=== PATIENT | female | born 1970 | race African-American/Black ===

== ENCOUNTER 2016-12-31 16:57 | Inpatient (IN) ==
[2016-12-31] MEDS ORDERED: HYDROmorphone 2 MG/1 ML VIAL IV STA (17:31)
[2016-12-31] MEDS ORDERED: SODIUM CHLORIDE 0.9% 500 ML IV STA (17:31)
[2016-12-31] MEDS ORDERED: ONDANSETRON 4 MG/2 ML VIAL IV STA (17:31)
[2016-12-31] MEDS ORDERED: PANTOPRAZOLE 40 MG VIAL IV STA (17:31)
[2016-12-31] MEDS ORDERED: hydrALAZINE 20 MG/1 ML VIAL IV STA ×2 (17:33→18:23)
[2016-12-31 17:50] LABS: Basophils % 0.2 % (0.0-0.8); Eosinophils # 0.1 10*3/uL (0.0-0.87); Eosinophils % 1.5 % (0.00-10.9); Hematocrit 34.2 VOL% (35.7-47.0); Hemoglobin 10.4 GM/DL (12.0-16.0); Immature Granulocytes % 0.2 %; Immature Granulocytes Absolute 0.02 #; Lymphocytes # 1.4 10*3/uL (1.4-4.0); Lymphocytes % 14.8 % (21.3-54.2); Mean Corpuscular HGB Conc 30.4 GM/DL (32-36); Mean Corpuscular Hemoglobin 20 PG (27-34); Mean Corpuscular Volume 66.9 FL (87-102); Mean Platelet Volume 9.7 FL (9.6-12.0); Monocytes # 0.7 10*3/uL (0.11-0.8); Monocytes % 7.7 % (1.7-12.7); Neutrophils % 75.6 % (38.7-73.9); Platelet Count 362 T/CUMM (130-400); Red Blood Count 5.11 MC/CUMM (3.8-5.5); White Blood Count 9.3 T/CUMM (4-12)
--- NOTE | 2016-12-31 17:50 | Emergency Department Note ---
Sravan Whitmore [place], am scribing for, and in the presence of, George Vallecillo MD 17:50. Avel Whitmore Charles R, MD, personally performed the services described in this documentation, ascribed by Janell Hinson in my presence, and it is both accurate and complete 750 . Arrival - Arrival Chief Complaint: Abdominal / Flank Pain Stated Complaint: abomindial pain ED Nursing Triage Note: c/o lower abd pain onset . denies uti or diarrhea. +n/v. last normal bm was Mode of Arrival: Ambulatory Limitations: No Limitations Source: Patient Time Seen by Provider: 12/31/16 17:25 - History of Present Illness HPI Narrative: This is a 46 y/o black female presenting to the ED with c/o lower abdominal pain that onset . She states she was at work when she ate a salad. She then had free gas in her abdomen. Pt states before she was able to leave [place] she began vomiting and has been vomiting since. Today was the first day that she was able to eat fruit cocktail and not vomit. Pt has a hernia to her lower abdomen that is erythematous, swollen, but nontender. She states the pain is under her umbilicus cord. She has a PMHx of HTN but is complaint with her medication. Consistency: constant Severity: moderate Date of Last Menstrual Period: now Home Medications: Home Medications Medication Instructions Recorded Confirmed Type Furosemide Tab [Lasix Tab] 20 mg PO BID 12/31/16 12/31/16 History Irbesartan 300 mg PO DAILY 12/31/16 12/31/16 History Metoprolol Succinate 50 mg PO DAILY 12/31/16 12/31/16 History amLODIPine [Norvasc] 10 mg PO DAILY 12/31/16 12/31/16 History Review of System - Review of System 12 point system: reviewed and no additional remarkable complaints except as stated - Review of System Constitutional: Absent: chills, fever, weakness Eyes: Absent: vision change Head/Ears/Nose/Throat: Absent: nasal drainage Respiratory: Absent: cough, wheezing Cardiovascular: Absent: chest pain, dyspnea on exertion Gastrointestinal: Present: abdominal pain (lower abdominal pain; hernia to lower abdomen ), nausea, vomiting. Absent: diarrhea Genitourinary female: Absent: dysuria Musculoskeletal: Absent: arm pain, back pain Skin: Absent: rash Neurological: Absent: headache, weakness, numbness, confusion, abnormal gait, vertigo Psychiatric: Absent: anxiety Endocrine: Absent: fatigue Allergic/Immunologic: Absent: facial swelling Medical,Surgical,& Family Hx - Medical History Cardio: History of: Hypertension Respiratory: History of: Obstructive Sleep Apnea - Social History Smoking Status: Never smoker Frequency of Alcohol Use: None Type of Drug Use: None Exam Vital Signs: Vital Signs Temperature 98.6 F 12/31/16 17:04 Pulse Rate 101 H 12/31/16 17:04 Respiratory Rate 18 12/31/16 17:04 Blood Pressure 208/131 12/31/16 17:04 O2 Sat by Pulse Oximetry 98 12/31/16 17:04 - General General appearance: alert, in no apparent distress - Head Head exam: Present: atraumatic, normocephalic, normal inspection - Eye Eye exam: Present: PERRL, EOMI. Absent: normal appearance (strabismus left eye ) - ENT ENT exam: Present: normal exam, normal oropharynx, mucous membranes moist, TM's normal bilaterally, normal external ear exam - Neck Neck exam: Present: normal inspection, full ROM, trachea midline. Absent: tenderness - Chest Chest inspection: Present: normal inspection, symmetric chest wall rise. Absent : tenderness - Respiratory Respiratory exam: Present: normal lung sounds bilaterally - Cardiovascular Cardiovascular exam: Present: normal rhythm, tachycardia, normal heart sounds. Absent: regular rate - Abdominal Exam Abdominal exam: Present: soft, tenderness, diminished bowel sounds, hernia ( large 10x12 cm hard; discolored; hernia ). Absent: distention, normal bowel sounds - Extremities Exam Extremities exam: Present: normal inspection, full ROM, normal capillary refill. Absent: tenderness, pedal edema, calf tenderness - Back Exam Back exam: Present: normal inspection, full ROM. Absent: tenderness - Neurological Exam Neurological exam: Present: alert, oriented X3, CN II-XII intact, normal gait, reflexes normal - Psychiatric Psychiatric exam: Present: normal affect, normal mood - Skin Skin exam: Present: warm, dry, intact, normal color. Absent: diaphoresis Course - Consultations Consultation #1: Dr. Galvez came and saw patient emergency room patient has incarcerated ventral hernia he can take her to surgery now Time: 17:50 Disposition Clinical Impression: Abdominal pain, Uncontrolled hypertension, Incarcerated ventral hernia Case discussed with: patient, patient's family Disposition: Still a Patient Condition: Guarded Time of Disposition: 17:51
--- NOTE | 2016-12-31 18:00 | General Surg History&Physical ---
Assessment and Plan (1) Incarcerated ventral hernia Status: Acute Assessment and plan: Impression: Incarcerated ventral hernia next Plan: Labs from outside facility reviewed. Abdominal x-ray and chest x-ray here were reviewed. She has dilated loops of small bowel in the upper abdomen and a paucity of gas centrally where the hernia is located. The skin changes over the abdominal bulge are very worrisome especially with how tense her abdomen is in this area. I don't detect peritoneal signs laterally. I discussed options with her and have recommended immediate laparotomy and repair of the hernia. I suspect this is an incarcerated hernia but a large abdominal mass could also be possible since I cannot feel the fascial edges. The risk of surgery including bleeding, infection, damage to surrounding structures, need for further surgery, possible bowel resection with leaking of the anastomosis, problems with anesthesia were all discussed in detail and she agrees to proceed. Alternatives of watchful waiting were also discussed but any further delay could resulted in deterioration of her clinical condition. Current Visit: Yes History of Present Illness Chief complaint: abdominal pain History of present illness: Ms. Lindsay is a 46 year old female with poorly controlled hypertension presents with abdominal pain since . She states she has had a known abdominal wall hernia for over a year. She began to have nausea vomiting and abdominal pain after she ate. The pain has been constant since then in the region of the hernia. Her pain has slowly worsened. She was transferred to our emergency room from an outside facility with a diagnosis of incarcerated hernia. She denies chest pain and shortness of breath and states she has no heart or lung problems. She states her only diagnoses are of hypertension and sleep apnea. She is no longer passing flatus and has not had a bowel movement in a couple of days. Home Medications Medication Instructions Recorded Confirmed Type Furosemide Tab [Lasix Tab] 20 mg PO BID 12/31/16 12/31/16 History Irbesartan 300 mg PO DAILY 12/31/16 12/31/16 History Metoprolol Succinate 50 mg PO DAILY 12/31/16 12/31/16 History amLODIPine [Norvasc] 10 mg PO DAILY 12/31/16 12/31/16 History Medical,Surgical,& Family Hx - Medical History Cardio: History of: Hypertension Respiratory: History of: Obstructive Sleep Apnea - Social History Smoking Status: Never smoker Frequency of Alcohol Use: None Type of Drug Use: None Exam - Constitutional Vitals: Period Temp Pulse Resp BP Sys/Au Pulse Ox Last 24 Hr 98.6 F 101 18 208/131 98 General appearance: no acute distress - Head Head exam: Present: normocephalic - ENT Mouth exam: Present: normal external inspection - Neck Neck exam: Present: normal inspection - Respiratory Respiratory exam: Present: clear to auscultation bilaterally - Cardiovascular Cardiovascular exam: Present: RRR - GI/Abdominal GI/Abdominal exam: Present: soft (very tender at the abdominal bulge. This is not reducible. The skin is very tense and has redness and skin changes already apparent. I'm unable to feel the edge of the fascia because of how tense this hernia is.) - Extremities Exam Extremities exam: Present: normal inspection - Back Exam Back exam: Present: normal inspection - Neurological Exam Neurological exam: Present: alert, oriented X3 Speech: Present: normal 12 point system: reviewed and no additional remarkable complaints except as stated Results - Labs CBC & BMP: 12/31/16 17:37 Lab Results: I have reviewed the past 24 hour labs
--- NOTE | 2016-12-31 18:02 | XRay Report ---
XR abdomen 2V Indication: Abdominal pain. Abdomen 3 views: Comparison 1450 hours shows no change in scattered air-fluid levels and gaseous prominence of left upper quadrant bowel. Absence of central small bowel markings again noted. Impression: No change. Gastroenteritis again shown. Cannot exclude central abdominal mass. PROCEDURE INTERPRETED AT [facility] DEPARTMENT OF RADIOLOGY Final Report Signed by: Omid Donaldson M.D.
--- NOTE | 2016-12-31 18:03 | XRay Report ---
XR chest 1V portable Indication: Abdominal pain. Chest one view: Heart size and mediastinal contour are normal. Lungs are hypoinflated but generally clear, except for minimal bibasilar atelectasis. Pleural spaces are clear. Bones are intact. Impression: Mild pulmonary hypoinflation with atelectasis. PROCEDURE INTERPRETED AT [facility] DEPARTMENT OF RADIOLOGY Final Report Signed by: Omid Donaldson M.D.
--- NOTE | 2016-12-31 18:06 | EKG Report ---
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
[2016-12-31] MEDS ORDERED: PANTOPRAZOLE 40 MG VIAL IV ONE (18:08)
[2016-12-31] MEDS ORDERED: ONDANSETRON 4 MG/2 ML VIAL ONE ×2 (18:08→18:55)
[2016-12-31] MEDS ORDERED: hydrALAZINE 20 MG/1 ML VIAL ONE (18:08)
[2016-12-31] MEDS ORDERED: HYDROmorphone 2 MG/1 ML VIAL ONE (18:09)
[2016-12-31 18:14] LABS: Albumin 3.4 G/DL (3.4-5.0); Calcium 9.4 MG/DL (8.5-10.1); Magnesium 2.6 MG/DL (1.8-2.4); Osmolality,Calculated 265.5 MOS/KG (273-304); Potassium 3.4 MMOL/L (3.5-5.1); Total Protein 8.9 G/DL (6.4-8.3)
[2016-12-31 18:21] LABS: Troponin I Only 0.086 NG/ML (0.00-0.045)
[2016-12-31] MEDS ORDERED: FUROSEMIDE 20 MG/2 ML VIAL IV STA (18:26)
[2016-12-31] MEDS ORDERED: FUROSEMIDE 20 MG/2 ML VIAL ONE (18:28)
[2016-12-31] MEDS ORDERED: PROPOFOL 200 MG/20 ML VIAL IV ONE (18:55)
[2016-12-31] MEDS ORDERED: PHENYLEPHRINE 1 MG/10 ML SYRINGE IV ONE (18:55)
[2016-12-31] MEDS ORDERED: SUCCINYLCHOLINE 200 MG/10 ML VIAL ONE (18:55)
[2016-12-31] MEDS ORDERED: LIDOCAINE 2% 5 ML VIAL ONE (18:55)
[2016-12-31] MEDS ORDERED: KETOROLAC 30 MG/1 ML VIAL ONE (18:55)
[2016-12-31] MEDS ORDERED: GLYCOPYRROLATE 0.4 MG/2 ML VIAL ONE (18:55)
[2016-12-31] MEDS ORDERED: PHENYLEPHRINE 50 MG/5 ML VIAL ONE (18:55)
[2016-12-31] MEDS ORDERED: NEOSTIGMINE 10 MG/10 ML VIAL ONE (18:55)
[2016-12-31] MEDS ORDERED: PHENYLEPHRINE 0.5% NASAL SPRAY 15 ML BOTTLE BOTH NARES ONE (18:55)
[2016-12-31] MEDS ORDERED: DEXAMETHASONE 10 MG/1 ML VIAL ONE (18:55)
[2016-12-31] MEDS ORDERED: LIDOCAINE 2% TOP JELLY 5 ML TUBE TOP ONE (18:55)
[2016-12-31] MEDS ORDERED: ROCURONIUM 100 MG/10 ML VIAL IV ONE (18:55)
[2016-12-31 19:03] LABS: Lactic Acid 1.3 MMOL/L (0.4-2.0)
[2016-12-31 19:07] LABS: Apearance,Urine CLEAR (Clear); Bacteria,Urine Occasional /HPF (Few); Bilirubin,Urine Small mg/dL (Negative); Blood, Urine Negative (Negative); Glucose,Urine (UA) Negative (Negative); Ketones,Urine Negative (Negative); Mucus,Urine Occasional /LPF (Occasional); Nitrite,Urine Negative (Negative); Protein,Urine 30 MG/DL; RBC,Urine 6 /HPF (0-4); Squamous Epithelial Cell,Urine Occasional /HPF (0-10); Urine Color Yellow (Yellow); Urine Specific Gravity 1.014 (1.001-1.035); WBC,Urine 5 /HPF (0-6)
[2016-12-31] MEDS ORDERED: PROPOFOL 1,000 MG/100 ML BOTTLE IV ONE (20:30)
[2016-12-31] MEDS ORDERED: MIDAZOLAM 2 MG/2 ML VIAL ONE (20:40)
[2016-12-31] MEDS ORDERED: fentaNYL 100 MCG/2 ML VIAL ONE (20:40)
[2016-12-31] MEDS ORDERED: SEVOFLURANE 1 UNIT/15 MINUTE INH ONE (20:40)
[2016-12-31] MEDS ORDERED: LACTATED RINGERS 2,000 ML IV ONE (20:40)
[2016-12-31] MEDS ORDERED: ACETAMINOPHEN 1,000 MG/100 ML VIAL IV ONE (20:40)
[2016-12-31] MEDS ORDERED: ONDANSETRON 4 MG/2 ML VIAL IV PRN ×2 (20:45)
[2016-12-31] MEDS ORDERED: HYDROmorphone 2 MG/1 ML VIAL IV PRN (20:45)
[2016-12-31] MEDS ORDERED: ACETAMINOPHEN 325 MG TABLET PO PRN (20:45)
[2016-12-31] MEDS ORDERED: MORPHINE 2 MG/1 ML SYRINGE IV PRN (20:45)
--- NOTE | 2016-12-31 20:52 | Operative Note ---
Date of procedure: 12/31/16 Pre-op diagnosis: incarcerated ventral hernia Post-op diagnosis: same (infarcted bowel and mesentery within the hernia. Multiple abdominal masses present) Procedure: Procedure performed: Exploratory laparotomy with omentectomy #2 small bowel resection #3 resection of hernia sac Procedure in detail: After informed consent was obtained, patient was taken operating suite and laid supine on the operating table. After general anesthesia was induced followed catheter placed and abdomen was prepped and draped in usual sterile fashion. After procedural pause incision was made over the large abdominal bulge and dissection carried down through skin and soft tissue. I dissected down to the fascia superior to the abdominal bulge where normal fascia was entered. Entrance into the abdominal cavity was obtained. I continued dissection down to the neck of the hernia which was much smaller than the actual sac. The neck was probably about 3 cm in diameter. Once the neck was opened and the sac opened there was return of dirty dishwater-colored fluid. Omentum was obviously infarcted in this area. As I further explored identified a cold small bowel coming up into the hernia sac that had not closed and was ischemic. Proximal to this area the small bowel was dilated and distal to it it was decompressed. Once the hernia sac was fully opened I resected it from the subcutaneous tissue and away from the skin as well as umbilicus and off of the fascia and removed. The necrotic omentum was transected using Bovie and ligated with 0 ties and passed off the field. Small bowel resection was performed using NADEGE stapling devices with blue loads removing approximately 10 cm or so of obviously nonviable small bowel. The remaining ends of the bowel appeared of questionable viability but not obviously necrotic. There was no other obvious ischemic bowel or any other ischemic organ present. 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 The largest was in the epigastric area and may be transverse colon but is difficult to tell. It was very large and boggy. At least the size of a small watermelon. There were multiple other smaller tumors in the pelvis. The patient's blood pressure was fairly labile during the procedure felt it best to terminate the procedure and get her to the ICU for resuscitation. An abdominal wound VAC was placed with a good seal. Patient was taken to the ICU in guarded condition. All lap and needle counts were correct at the end of the case. Plan will be for further evaluation with CT scan when the patient becomes more stable and a subsequent return to the operating room for second look laparotomy and re-anastomosis of the bowel. Further plans to address the tumors will be made after the CT scan. Anesthesia: JARREDA Surgeon / Physician: Jay Galvez Estimated blood loss: other (less than 25 mL) Specimens: other (#1 small bowel #2 infarcted omentum #3 hernia sac) Condition: stable Disposition: PACU Results - Labs CBC & BMP: 12/31/16 17:37 12/31/16 17:37 Discharge Plan - Discharge Medications No Action amLODIPine [Norvasc] 10 mg PO DAILY Furosemide Tab [Lasix Tab] 20 mg PO BID Metoprolol Succinate 50 mg PO DAILY Irbesartan 300 mg PO DAILY - Follow Up or Referral - Forms/Instructions
[2016-12-31] MEDS: LACTATED RINGERS 1,000 ML IV SCH (20:55)
[2016-12-31] MEDS: MORPHINE 2 MG/1 ML SYRINGE IV PRN (20:57)
[2016-12-31] MEDS: PROPOFOL 1,000 MG/100 ML BOTTLE IV SCH (21:00)
[2016-12-31] MEDS ORDERED: hydrALAZINE 20 MG/1 ML VIAL IV ONE (21:16)
--- NOTE | 2016-12-31 21:21 | XRay Report ---
XR chest 1V portable Indication: Intubated. Chest one view: Since 1747 hours, patient has been intubated, endotracheal tube 3 cm cephalad to silvina. NG tube extends into the upper stomach. Consider advancing slightly. Lung volumes are decreased with mild atelectasis. No infiltrates. Heart size is normal. Impression: Adequate intubation. Consider advancing NG tube slightly. Pulmonary hypoinflation. PROCEDURE INTERPRETED AT [facility] DEPARTMENT OF RADIOLOGY Final Report Signed by: Omid Donaldson M.D.
[2016-12-31 21:25] LABS: Allen Test Positive; Pt O2 Delivery Device Ventilator
[2016-12-31 21:26] LABS: ABG Base Excess 2.8 MMOL/L (-2.5-2.5); ABG HCO3 26.7 MMOL/L (20-26); ABG Oxygen Saturation 99.1 % (95-100); ABG PCO2 38.6 MM HG (35-48); ABG PH 7.458 (7.35-7.45); ABG PO2 220.1 MM HG (80-95); ABG TCO2 27.9 MMOL/L (23-27)
[2016-12-31] MEDS ORDERED: METOPROLOL TARTRATE 5 MG/5 ML VIAL IV ONE ×2 (21:30)
--- NOTE | 2016-12-31 22:28 | Hospitalist Consult Note ---
Assessment and Plan (1) Abdominal pain Status: Acute Current Visit: Yes (2) Uncontrolled hypertension Status: Acute Current Visit: Yes (3) Incarcerated ventral hernia Status: Acute Assessment and plan: Per my discussion with Dr. Ennis patient has a tumor in her abdomen. He was concerned that it was a neuroendocrine type tumor. He is ordered some plasma metanephrines. Recommend that she be put on a Cardene infusion for now. Should help stabilize her blood pressure as she is able to take p.o. again. She is supposed to have a CT scan of her abdomen tomorrow Current Visit: Yes History of Present Illness - Consult Narrative Reason for consult: Hypertension History of present illness: Ms. Lindsay is a 46 year old female with known past medical history of hypertension presented with abdominal pain for 5 days. Per review of the records she had a known abdominal wall hernia for over a year. She began to have nausea and vomiting and abdominal pain after she ate. The pain had been reported as constant in the region of the hernia. She was transferred to our emergency room from outside facility with a diagnosis of incarcerated hernia. She denied chest pain and states that she has not no heart or lung problems. She reported her only diagnosis was hypertension and sleep apnea. She reported not having a bowel movement a couple days. Patient was taken to surgery by Dr. Ennis. She has been kept n.p.o. And we were consulted for her malignant hypertension. CC: Jay Galvez MD - Home Medications and Allergies Home Medications: Home Medications Medication Instructions Recorded Confirmed Type Furosemide Tab [Lasix Tab] 20 mg PO BID 12/31/16 12/31/16 History Irbesartan 300 mg PO DAILY 12/31/16 12/31/16 History Metoprolol Succinate 50 mg PO DAILY 12/31/16 12/31/16 History amLODIPine [Norvasc] 10 mg PO DAILY 12/31/16 12/31/16 History Allergies/Adverse Reactions: Allergies Allergy/AdvReac Type Severity Reaction Status Date / Time No Known Allergies Allergy Unverified 12/31/16 18:22 Medical,Surgical,& Family Hx - Medical History Cardio: History of: Hypertension Respiratory: History of: Obstructive Sleep Apnea - Social History Smoking Status: Never smoker Frequency of Alcohol Use: None Type of Drug Use: None ROS unobtainable: due to endotracheal tube Exam - Constitutional Vitals: Period Temp Pulse Resp BP Sys/Au Pulse Ox Last 24 Hr 97.5 F-97.8 F 85-113 14-19 179-221/100-129 95-100 General appearance: normal weight - Head Head exam: Present: normal inspection - ENT ENT exam: Present: other (ET tube in place) - Neck Neck exam: Present: normal inspection - Respiratory Respiratory exam: Present: clear to auscultation bilaterally - Cardiovascular Cardiovascular exam: Present: regular rate and rhythm - GI/Abdominal GI/Abdominal exam: Present: distended, soft (Patient is abdominal wound is kept open) - Extremities Exam Extremities exam: Present: normal inspection - Back Exam Back exam: Present: normal inspection - Neurological Exam Neurological exam: Present: other (Sedated on the vent) - Psychiatric Psychiatric exam: Present: normal affect - Skin Skin exam: Present: normal color Results - Labs CBC & BMP: 12/31/16 17:37 12/31/16 17:37 Quality Measures - VTE Contraindication to Pharmacological VTE Prophylaxis: High Risk of Bleeding
[2016-12-31] MEDS: niCARdipine INJ 25 MG in SODIUM CHLORIDE 0.9% 240 ML IV SCH (22:35)
[2017-01-01] MEDS: PROPOFOL 1,000 MG/100 ML BOTTLE IV SCH ×4 (01:54→19:09)
[2017-01-01 02:13] LABS: ABG Base Excess 0.8 MMOL/L (-2.5-2.5); ABG HCO3 25.2 MMOL/L (20-26); ABG PCO2 41.7 MM HG (35-48); ABG PH 7.398 (7.35-7.45); ABG TCO2 23.5 MMOL/L (23-27)
[2017-01-01] MEDS: niCARdipine INJ 25 MG in SODIUM CHLORIDE 0.9% 240 ML IV SCH ×4 (04:04→21:19)
[2017-01-01 04:34] LABS: Basophils % 0.1 % (0.0-0.8); Hematocrit 31.8 VOL% (35.7-47.0); Hemoglobin 9.3 GM/DL (12.0-16.0); Immature Granulocytes % 0.3 %; Immature Granulocytes Absolute 0.03 #; Lymphocytes # 0.6 10*3/uL (1.4-4.0); Lymphocytes % 6.1 % (21.3-54.2); Mean Corpuscular HGB Conc 29.2 GM/DL (32-36); Mean Corpuscular Hemoglobin 20 PG (27-34); Mean Corpuscular Volume 67.2 FL (87-102); Mean Platelet Volume 9.9 FL (9.6-12.0); Monocytes # 0.5 10*3/uL (0.11-0.8); Monocytes % 5.7 % (1.7-12.7); Neutrophils # 8.3 10*3/uL (1.4-7.4); Neutrophils % 87.8 % (38.7-73.9); Platelet Count 382 T/CUMM (130-400); Red Blood Count 4.73 MC/CUMM (3.8-5.5); Red Cell Distribution Width 20.8 % (9.3-17.3); White Blood Count 9.5 T/CUMM (4-12)
[2017-01-01] MEDS: LACTATED RINGERS 1,000 ML IV SCH ×3 (04:49→20:16)
[2017-01-01 05:05] LABS: Calcium 8.8 MG/DL (8.5-10.1); Osmolality,Calculated 273.1 MOS/KG (273-304); Potassium 4.3 MMOL/L (3.5-5.1)
[2017-01-01 05:16] LABS: Albumin 2.9 G/DL (3.4-5.0); Bilirubin,Direct 2.4 MG/DL (0.0-0.20); Bilirubin,Indirect 0.7 MG/DL (0.0-1.0); Bilirubin,Total 3.1 MG/DL (0.2-1.0); Total Protein 7.6 G/DL (6.4-8.3)
--- NOTE | 2017-01-01 06:23 | XRay Report ---
Referring Physician: Kip Gill MD Exam: XR chest 1V portable Date: January 01, 2017 at 2:57 AM Reason: Ventilation management Comparison: Chest one view portable December 31, 2016 Findings: An endotracheal tube and feeding tube are again in place. The cardiac silhouette is normal in size. There are minimal perihilar and bibasilar opacities. This is most consistent with atelectasis. No pneumothorax or pleural effusion is identified. No acute osseous process is seen. Impression: There has been no significant change. PROCEDURE INTERPRETED AT [facility] DEPARTMENT OF RADIOLOGY Final Report Signed by: Dr. Aniceto Ferreira
--- NOTE | 2017-01-01 06:47 | Pulmonology Consult Note ---
Assessment and Plan (1) Abdominal mass Status: Acute Assessment and plan: This is going to require a CT scan and then most likely additional surgery. Concern over whether this may be a neuroendocrine tremor. Current Visit: Yes (2) Postoperative mechanical ventilation Status: Acute Assessment and plan: ABGs and chest x-ray look good. Should be able to wean her this morning. Current Visit: Yes (3) Uncontrolled hypertension Status: Acute Assessment and plan: Presently on Cardene infusion. Hospitalist following. Blood pressure looks good. Current Visit: Yes (4) Incarcerated ventral hernia Status: Acute Assessment and plan: She has had laparotomy for the hernia, but abdominal mass was encountered so she was not closed. Current Visit: Yes History of Present Illness Chief complaint: Postop laparotomy History of present illness: Ms. Lindsay is a 46 year old female who has had a ventral hernia for close to a year. Get where she was having pain nausea and vomiting not having any stools or flatus for the last for 5 days. She came in yesterday and went to surgery last night. She was found to have an abdominal mass and multiple other smaller masses. She is going to need additional surgery in time. At present she still on the ventilator after surgery. She is to have a CT scan of the abdomen today. Is not clear when she will be going back to surgery. There is no known history of any lung disease. She does have very difficult to control hypertension. Home Medications Medication Instructions Recorded Confirmed Type Furosemide Tab [Lasix Tab] 20 mg PO BID 12/31/16 12/31/16 History Irbesartan 300 mg PO DAILY 12/31/16 12/31/16 History Metoprolol Succinate 50 mg PO DAILY 12/31/16 12/31/16 History amLODIPine [Norvasc] 10 mg PO DAILY 12/31/16 12/31/16 History Allergies Allergy/AdvReac Type Severity Reaction Status Date / Time No Known Allergies Allergy Unverified 12/31/16 18:22 ROS unobtainable: due to endotracheal tube Exam (Pulmonay) H&P - Constitutional Vitals: Period Temp Pulse Resp BP Sys/Au Pulse Ox Last 24 Hr 97.0 F-97.8 F 85-113 14-21 129-240/67-146 95-100 Exam: Vital signs are normal. Pupils react to light. She has an exophoria. She does nod to questions and move all 4 extremities on command. Orotracheal tube is in place. Neck supple no bruits. Chest is clear equal breath sounds. Heart rate is around 105. Rhythm is normal. No murmur. Abdomen is bandaged with a large mass. Extremities no clubbing cyanosis or edema. Calves nontender. Medical,Surgical,& Family Hx - Medical History Cardio: History of: Hypertension Respiratory: History of: Obstructive Sleep Apnea - Family History Family History: Reports;: Family Hypertension, Family Stroke - Social History Smoking Status: Never smoker Frequency of Alcohol Use: None Type of Drug Use: None Results - Labs CBC & BMP: 01/01/17 04:11 01/01/17 04:11 Lab Results: I have reviewed the past 24 hour labs - Diagnostic Findings Procedure: Chest x-ray: image reviewed by me (Lungs are clear. ET tube good position.) Quality Measures - VTE Contraindication to Pharmacological VTE Prophylaxis: High Risk of Bleeding
--- NOTE | 2017-01-01 07:33 | Hospitalist Progress Note ---
Hospitalist: Subjective Interval history: No significant overnight events noted/ reported. Pt still intubated. No fever. No chest pain or SOB. C/O mild-moderate abd pain. Exam - Constitutional Vitals: Period Temp Pulse Resp BP Sys/Au Pulse Ox Last 24 Hr 97.0 F-97.8 F 85-113 14-21 129-240/67-146 95-100 Exam: GEN: Pt is awake, alert, comfortable, intubated on the vent, NAD HEENT: PERRL, EOMI, sclera clear, conjunctiva pink, nares patent, of what could be visualized O/P clear NECK: supple, No JVD, trachea midline CV: regular rate and rhythm. Normal S1/ S2 no M/R/G LUNGS: CTAB nonlabored ABD: soft, appropriately tender to palpation, positive bowel sounds EXT: Warm, well perfused. No C/C/E. NEURO: moves all extremities. Mild exotropia of the left eye. KING equally Results - Labs CBC & BMP: 01/01/17 04:11 01/01/17 04:11 - Impressions * Acute abdominal pain due to incarcerated hernia due to abdominal mass s/p exp lap and biopsy- mgt per primary service. IV pain control. NPO for now as surgery has plans to return to OR today for mass resection and plans for CT abd/pelvis with contrast. Cont PPI prophylaxis. Cont prophylactic Cefoxitin * Acute renal failure- possibly due to change in perfusion pressure with better BP control. Will hold Lasix and Avapro. She has orders for IVF and mucomyst. Recheck RFP in am * Essential hypertension- Blood pressure controlled on Cardene drip. Monitor vitals. Postoperatively will try to wean and start on home meds * Acute hypoxic respiratory failure- management of vent per pulmonology * JESSICA- mgt per pulm DVT prophylaxis- SCDS D/W nurse and pt and all questions answered. <30 minutes of time spent with this patient. Quality Measures - VTE Contraindication to Pharmacological VTE Prophylaxis: High Risk of Bleeding
[2017-01-01] MEDS ORDERED: FUROSEMIDE 20 MG TABLET PO SCH (08:00)
[2017-01-01] MEDS ORDERED: ACETYLCYSTEINE 20% 6,000 MG/30 ML VIAL PO ONE (08:00)
[2017-01-01] MEDS ORDERED: SODIUM CHLORIDE 0.9% 1,000 ML IV ONE (08:51)
[2017-01-01] MEDS: MORPHINE 2 MG/1 ML SYRINGE IV PRN ×5 (08:52→22:27)
[2017-01-01] MEDS ORDERED: PANTOPRAZOLE 40 MG TABLET PO SCH (09:00)
[2017-01-01] MEDS ORDERED: IRBESARTAN 150 MG TABLET PO SCH (09:00)
--- NOTE | 2017-01-01 09:28 | Anesthesia ---
Anesthesia Post OP - Post Ansesthetic Evaluation Patient seen in post op: Yes Resp: within normal limits (vent) CV: within normal limits Mental: within normal limits Temp: within normal limits [id number]: within normal limits Nausea and Vomiting: within normal limits Pain: within normal limits
[2017-01-01] MEDS ORDERED: ONDANSETRON 4 MG/2 ML VIAL ONE (11:05)
[2017-01-01] MEDS ORDERED: ROCURONIUM 100 MG/10 ML VIAL IV ONE (11:05)
[2017-01-01] MEDS ORDERED: VECURONIUM 10 MG VIAL IV ONE (11:05)
[2017-01-01] MEDS ORDERED: PHENYLEPHRINE 1 MG/10 ML SYRINGE IV ONE (11:05)
[2017-01-01] MEDS ORDERED: LIDOCAINE 2% 5 ML VIAL ONE (11:05)
--- NOTE | 2017-01-01 11:09 | Event Note ---
Stable BP better controlled [place] with good seal CT reviewed Metanephrine/5HIAA labs are 24 hour collection and then send outs Plan for reexploration and possible resection of abd tumors/closure of abdomen today. 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 Probably only able to debulk.
--- NOTE | 2017-01-01 11:36 | CT Report ---
Referring physician: Jay Galvez EXAM: CT abdomen and pelvis with and without contrast DATE: January 01, 2017 COMPARISON: None REASON: Abdominal mass TECHNIQUE: Axial images of the abdomen and pelvis were obtained with and without the use of 100 cc of Omnipaque 350 IV contrast. Oral contrast was also administered. Coronal and sagittal reformatted images were also provided. Total DLP was 2397.2 mGy*cm. FINDINGS: Lower thorax: There is mild atelectasis within both lower lobes, and the right hemidiaphragm is mildly elevated. Minimal ill-defined fluid/edema is seen adjacent to the lower esophagus. A feeding tube is in place with its distal tip within the gastric fundus. ABDOMEN: Liver: Unremarkable. Gallbladder and bile ducts: There is questionable mild diffuse prominence of the gallbladder wall, but this is nonspecific given the presence of minimal ascites. No biliary ductal dilatation is seen. Pancreas: Unremarkable. Spleen: Unremarkable. Adrenals: Unremarkable. Kidneys and ureters: No hydronephrosis is present, and no suspicious suspicious renal lesion is identified. There is questionable slight decreased excretion of contrast by the left kidney compared to the right. PELVIS: Bladder: The bladder is displaced anteriorly, and a Agarwal catheter is in place. The bladder wall is mildly prominent, but this could be related to poor distention. Reproductive: In the expected region of the uterus, there is a large lobulated mass. This is contiguous with an additional large well-circumscribed mass within the right/mid abdomen, which contains areas of probable necrosis and calcification. This may represent an enlarged uterus with multiple uterine fibroids, but other considerations include a neoplasm such as a sarcoma. This is difficult to accurately measure, but the mass within the right/mid upper abdomen measures 24 x 18 x 17 cm on image 70, series 2 and image 67, series 6. The lobulated mass within the pelvis in the expected region of the uterus measures 18 x 16 x 10 cm on image 109 series 3 and image 69, series 6. The ovaries are not identified. ABDOMEN AND PELVIS: Bowel: The colon is poorly distended and difficult to evaluate. There are distended loops of small bowel with air-fluid levels present. The small bowel is displaced by the large masses within the abdomen and pelvis, and there may be areas of bowel wall thickening. This could represent small bowel obstruction, ileus or postsurgical change. A transition point is difficult to identify but is likely located within the left abdomen near a suture line which is seen on image 96, series 3. Appendix: The appendix is not identified. Vasculature: The abdominal aorta is normal in size. Peritoneum: There is minimal scattered ascites and mesenteric edema. Mild free air is present, mainly anteriorly near a probable open wound at the abdominal wall. This air could be related to the wound or recent surgery. Lymph nodes: No suspicious retroperitoneal adenopathy is identified. Abdominal/pelvic wall: There is an open wound at the anterior abdominal wall at midline. There is a lobulated soft tissue density within the subcutaneous fat at the inferior aspect of the site of dehiscence. It measures 6.4 x 1.7 x 3.6 cm on image 108, series 3. This likely represents packing material or a wound VAC, but scarring, hematoma or inflammation could have a similar appearance. There is also some mild subcutaneous edema diffusely at the anterior abdominal wall and mild diffuse skin thickening. Surgical skin kimmy are noted in this region. Bones: There is mild to moderate degenerative change at the spine. No acute osseous process is seen. IMPRESSION: 1. There is a large lobulated mass within the pelvis in the expected region of the uterus. There is also a contiguous large well-circumscribed mass within the right/mid abdomen. This could represent an enlarged uterus with multiple uterine fibroids. However, a neoplastic process such as a sarcoma is also in the differential. 2. The colon is decompressed, and there are several distended loops of small bowel with air-fluid levels present. This could represent small bowel obstruction, ileus or postsurgical change. A transition point is difficult to identify but is likely located near a suture line within the left abdomen. 3. Open wound at the anterior abdominal wall near midline. Mild air is seen within the anterior abdomen and is likely related to recent surgery or the wound. 4. There is mesenteric edema and minimal scattered ascites. 5. There is questionable mild gallbladder wall thickening which is nonspecific in the setting of mesenteric edema and ascites. Further evaluation could be performed with a nuclear medicine biliary scan or ultrasound as clinically indicated. 6. There may be slight decreased excretion of contrast by the left kidney compared to the right. 7. Mild bibasilar atelectasis. The CT exam was performed using one or more of the following dose reduction techniques: Automated exposure control and adjustment of the mA and/or kV according to patient size. PROCEDURE INTERPRETED AT [facility] DEPARTMENT OF RADIOLOGY Final Report Signed by: Dr. Aniceto Ferreira
[2017-01-01] MEDS ORDERED: niCARdipine 25 MG/10 ML VIAL IV ONE (12:09)
[2017-01-01 12:22] LABS: Hematocrit 28.1 VOL% (35.7-47.0); Hemoglobin 8.4 GM/DL (12.0-16.0)
--- NOTE | 2017-01-01 12:56 | Operative Note ---
Date of procedure: 01/01/17 Pre-op diagnosis: Intraoperative consult large uterine leiomyomata Post-op diagnosis: other (Uterine megaly with large uterine leiomyomata) Procedure: PROCEDURE: 1. Total abdominal hysterectomy. 2 left salpingo-oophorectomy SURGEON: Alex Madison MD. COMPUTER PROGRAMMER CHIEF: Drs. Ennis and Dr. Sun FINDINGS: 1. Uterus greater than 22 weeks' size. 2. Large uterine leiomyomata 3. Left ovary completely adherent to the fundus of the uterus 4. Right ovary appeared normal COMPLICATIONS: None. ESTIMATED BLOOD LOSS: 200 cc. DRAINS: Agarwal to gravity. DISPOSITION: Patient to be closed by Dr. Ennis and Dr. Sun OPERATIVE DESCRIPTION: Was consulted intraoperatively by Drs. Ennis and sandeep. And the abdomen open and they had completed their portion procedure and had removed a large smooth muscle tumor. She is also noted to have large uterine leiomyomata of the uterus which were intramural and also multiple pedunculated ones. The decision was made to proceed as was in the patient's best interest to remove the uterus as this appeared to be a potential problem again in the near future. The utero-ovarian ligaments were identified bilaterally and back clamped. The right tube and ovary was completely adherent to the fundus of the uterus on the left. The IP ligament was identified above the level ureter on the left was crossclamped using a slightly curved Z-Clamp transected using curved Gaines scissors and transfixed using Monocryl sutures. The utero-ovarian ligament was identified on the right taken down in similar fashion leaving the ovaries patient's 46 years old and her right ovary appeared normal. This dissection technique was carried out through the round ligaments bilaterally. A bladder flap was created off the anterior lower uterine segment using the Bovie electrocautery and blunt and sharp dissection. The uterine vessels were skeletonized bilaterally taken down using a right angle Z clamps transected using curved Gaines scissors and transfixed using Monocryl sutures. Using a large malleable retractor as a back stop the fundus the uterus was amputated using a #10 knife in the lower uterine stump grasped with Jef tenaculum. Specimen was or was removed from the field. The rest the cardinal complex down the uterosacral ligament complex was taken down in succession and treatment clock crossclamped with straight Z clamps transected using a #10 non- transfixes normal Monocryl sutures. The bladder was continually dissected away caudad and urine was noted to be clear but concentrated. The terminal portion uterosacral ligament complex was taken down using right angle Z clamps transected using Helen scissors and transfixed using #1 Vicryl suture. Central portion of vaginal cuff was reinforced using 0 Monocryl suture in a [id number] fashion. The angles were noted to be hemostatic. All pedicles were then cut the abdomen copiously irrigated again all areas noted to be hemostatic this portion procedure Dr. Lenny johnson completed their portion procedure by closing the abdomen which is dictated in a separate operative note Anesthesia: JARREDA Surgeon / Physician: Alex Madison Estimated blood loss: other (200) Specimens: other (Uterus cervix left tube and ovary to pathology) Condition: stable Disposition: other (Case turned over Dr. Ennis and Dr. Sun for closure of the abdomen) Results - Labs CBC & BMP: 01/01/17 12:17 01/01/17 04:11 Discharge Plan - Discharge Medications No Action amLODIPine [Norvasc] 10 mg PO DAILY Furosemide Tab [Lasix Tab] 20 mg PO BID Metoprolol Succinate 50 mg PO DAILY Irbesartan 300 mg PO DAILY - Follow Up or Referral - Forms/Instructions
--- NOTE | 2017-01-01 13:03 | Operative Note ---
Date of procedure: 01/01/17 Procedure: Dr. Sun librarian assistant operative note Brenna MCKEON. Surgeon; Loli Sun. Procedure patient underwent laparotomy with partial small bowel resection the previous night for an incarcerated umbilical hernia with findings of large tumor masses she was unstable has been now resuscitated and stabilized as returned to the operating room for completion of the laparotomy and any necessary procedures. Description of the procedure: Dr. Galvez performed exploratory laparotomy with removal of omentum and a large upper body solid tumor mass resection of the small portion of the small bowel and re-anastomosis. This at this point is found that the large tumor mass that involves the uterus with multiple fibroid appearing tumors. Dr. Madison is consulted joints the procedure and complete saline abdominal hysterectomy total abdominal hysterectomy with a left salpingo- oophorectomy. His portion of the procedure separately dictated I assisted Dr. Galvez and Dr. Madison throughout this procedure. Surgeon / Physician: Thad Sun Results - Labs CBC & BMP: 01/01/17 12:17 01/01/17 04:11 Discharge Plan - Discharge Medications No Action amLODIPine [Norvasc] 10 mg PO DAILY Furosemide Tab [Lasix Tab] 20 mg PO BID Metoprolol Succinate 50 mg PO DAILY Irbesartan 300 mg PO DAILY - Follow Up or Referral - Forms/Instructions
[2017-01-01] MEDS ORDERED: MIDAZOLAM 2 MG/2 ML VIAL ONE (13:29)
[2017-01-01] MEDS ORDERED: SEVOFLURANE 1 UNIT/15 MINUTE INH ONE (13:29)
[2017-01-01] MEDS ORDERED: LACTATED RINGERS 3,000 ML IV ONE (13:29)
[2017-01-01] MEDS ORDERED: fentaNYL 100 MCG/2 ML VIAL ONE (13:29)
--- NOTE | 2017-01-01 13:36 | Anesthesia ---
Anesthesia Post OP - Post Ansesthetic Evaluation Patient seen in post op: Yes Resp: within normal limits CV: within normal limits Mental: within normal limits Temp: within normal limits [id number]: within normal limits Nausea and Vomiting: within normal limits Pain: within normal limits
[2017-01-01] MEDS: amLODIPine 10 MG TABLET PO SCH (13:54)
[2017-01-01] MEDS: METOPROLOL SUCCINATE XL 50 MG TABLET PO SCH (14:15)
[2017-01-01] MEDS: PANTOPRAZOLE 40 MG TABLET PO SCH (14:15)
[2017-01-01 15:06] LABS: Hematocrit 32.7 VOL% (35.7-47.0); Hemoglobin 9.9 GM/DL (12.0-16.0)
[2017-01-01] MEDS: ACETYLCYSTEINE 20% 6,000 MG/30 ML VIAL PO SCH ×2 (16:05→23:59)
--- NOTE | 2017-01-01 16:12 | Operative Note ---
Date of procedure: 01/01/17 Pre-op diagnosis: open abdomen, intra-abdominal tumors Post-op diagnosis: same Procedure: Procedure performed: #1 reexploration of recent laparotomy #2 small bowel resection with reanastomosis #3 resection of large intra-abdominal tumor number for repair of incarcerated ventral hernia Procedure in detail: After informed consent was obtained, the patient was taken operating suite and laid supine on the operating table. After general anesthesia induced the abdominal wound VAC removed and the abdomen was prepped and draped in usual sterile fashion. After procedural pause the kimmy removed as well as the from and intra-abdominal draped. The midline incision was extended superiorly and inferiorly. The abdomen was entered and there was no significant blood or clot present. Large tumor in the upper abdomen appeared to be tethered by omentum and the omentum was divided between the tumor and the transverse colon. I was then able to deliver the large intra- abdominal mass outside of the abdomen and found that it coursed along the pedicle down to the uterus. There were other multiple tumors on the uterus and these all had the appearance of fibroids. A TA stapling device was used to divide the pedicle to the large tumor with a green staple load. This mass was approximately 30 cm or more in diameter. It was passed off the field. Next the small bowel was run from the ligament of Treitz to the ileocecal valve. Proximal portion dilated down to the staple line in the distal portion appeared decompressed. The bowel appeared healthy and viable and mildly edematous. A side to side functional end and anastomosis was created using a NADEGE stapling device with a green load. The resultant enterotomies were transected off using a NADEGE stapling device with a green load. The anastomosis appeared patent with no leakage. There was excellent hemostasis. The mesenteric defect was closed with 3-0 Vicryl suture. Next the abdomen was irrigated and suction was good hemostasis. NG tube was in good position. Gallbladder did not appear to be inflamed. Liver appeared normal as did the spleen. Next Dr. Huerta was consult it came in and felt that most appropriate thing was a hysterectomy given these large tumors. Please see his operative report for details regarding that portion of the operation. After he was done the abdomen was again irrigated and suction there was excellent hemostasis and I closed the midline fascia using #1 running looped PDS sutures thereby repairing the previously incarcerated ventral hernia. The wound was irrigated and suction. Skin closed with kimmy after the umbilicus was tacked back down to the fascia. Sterile dressings applied. The patient was left intubated and taken to the ICU in stable condition. All lap and needle counts were correct at the end of the case. Anesthesia: JANICE Surgeon / Physician: Jay Galvez Elementary Education Tutor: Thad Sun Estimated blood loss: other (less than 20 mL) Specimens: other (large intra-abdominal tumor) Condition: stable Disposition: PACU Results - Labs CBC & BMP: 01/01/17 14:59 01/01/17 04:11 Discharge Plan - Discharge Medications No Action amLODIPine [Norvasc] 10 mg PO DAILY Furosemide Tab [Lasix Tab] 20 mg PO BID Metoprolol Succinate 50 mg PO DAILY Irbesartan 300 mg PO DAILY - Follow Up or Referral - Forms/Instructions
[2017-01-01] MEDS ORDERED: ALBUMIN 25% 25 GM in PREMIX 1 EACH IV ONE (20:00)
[2017-01-02] MEDS: MORPHINE 2 MG/1 ML SYRINGE IV PRN ×9 (00:04→22:26)
[2017-01-02] MEDS: niCARdipine INJ 25 MG in SODIUM CHLORIDE 0.9% 240 ML IV SCH ×4 (01:45→22:33)
[2017-01-02] MEDS: PROPOFOL 1,000 MG/100 ML BOTTLE IV SCH ×2 (03:03→10:03)
[2017-01-02 03:35] LABS: Allen Test Positive; Pt O2 Delivery Device Ventilator
[2017-01-02 03:36] LABS: ABG Base Excess -1.3 MMOL/L (-2.5-2.5); ABG HCO3 23.1 MMOL/L (20-26); ABG Oxygen Saturation 98.1 % (95-100); ABG PH 7.413 (7.35-7.45); ABG PO2 127.9 MM HG (80-95); ABG TCO2 24.2 MMOL/L (23-27)
[2017-01-02] MEDS: LACTATED RINGERS 1,000 ML IV SCH ×3 (05:16→21:30)
[2017-01-02 05:37] LABS: Basophils % 0.2 % (0.0-0.8); Eosinophils % 0.3 % (0.00-10.9); Hematocrit 26.3 VOL% (35.7-47.0); Immature Granulocytes % 0.2 %; Immature Granulocytes Absolute 0.02 #; Lymphocytes % 9.9 % (21.3-54.2); Mean Corpuscular HGB Conc 30.4 GM/DL (32-36); Mean Corpuscular Hemoglobin 20 PG (27-34); Mean Corpuscular Volume 67.1 FL (87-102); Mean Platelet Volume 10.4 FL (9.6-12.0); Monocytes # 0.9 10*3/uL (0.11-0.8); Monocytes % 8.9 % (1.7-12.7); Neutrophils # 7.8 10*3/uL (1.4-7.4); Neutrophils % 80.5 % (38.7-73.9); Platelet Count 301 T/CUMM (130-400); Red Blood Count 3.92 MC/CUMM (3.8-5.5); Red Cell Distribution Width 20.7 % (9.3-17.3); White Blood Count 9.7 T/CUMM (4-12)
[2017-01-02 05:58] LABS: Hypochromasia 1+; Platelet Estimate Adequate
[2017-01-02 06:07] LABS: Calcium 7.2 MG/DL (8.5-10.1); Osmolality,Calculated 281.4 MOS/KG (273-304); Phosphorous 4.7 MG/DL (2.5-4.9); Potassium 4.1 MMOL/L (3.5-5.1)
[2017-01-02 06:11] LABS: Albumin 2.1 G/DL (3.4-5.0); Bilirubin,Total 1.6 MG/DL (0.2-1.0); Calcium 7.2 MG/DL (8.5-10.1); Osmolality,Calculated 282.4 MOS/KG (273-304); Potassium 4.1 MMOL/L (3.5-5.1); Total Protein 5.1 G/DL (6.4-8.3)
[2017-01-02] MEDS ORDERED: METOPROLOL TARTRATE 5 MG/5 ML VIAL IV ONE (06:24)
--- NOTE | 2017-01-02 06:36 | Pulmonology Progress Note ---
Pulmonary - PN: Subj Interval history: This 46-year-old white female went back to surgery yesterday. 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 She had a hysterectomy. Her abdomen has been closed. She is alert and calm. She is still tachycardic with a rate of around 120. We will give her some IV metoprolol. Should be able to extubate this morning. Exam (Progress Note) - Constitutional Vitals: Period Temp Pulse Resp BP Sys/Au Pulse Ox Last 24 Hr 97.1 F-99.6 F 99-132 14-23 111-196/72-114 97-100 Exam: Patient is alert nods to questions. Pupils react to light. She has exophoria. Orotracheal tube in place. Neck supple. Chest sounds clear. Heart rate around 120 with no murmurs. Abdomen is now closed bandage mildly tender. Decreased bowel sounds. Extremities no clubbing cyanosis edema. Calves nontender. Results - Labs CBC & BMP: 01/02/17 04:45 01/02/17 04:45 Assessment and Plan (1) Abdominal mass Status: Acute Assessment and plan: This is going to require a CT scan and then most likely additional surgery. Concern over whether this may be a neuroendocrine tremor. 01/02/2017 she was taken back to surgery yesterday with multiple smooth muscle tumors removed. Also had hysterectomy and left oophorectomy. Had wound closed. Await final pathology reports. Current Visit: Yes (2) Postoperative mechanical ventilation Status: Acute Assessment and plan: ABGs and chest x-ray look good. Should be able to wean her this morning. 01/02/2017 ABGs look good. Other than her tachycardia she should be ready for extubation. We will give her some IV metoprolol. She normally takes metoprolol by mouth. Need to get her heart rate down for weaning. Current Visit: Yes (3) Uncontrolled hypertension Status: Acute Assessment and plan: Presently on Cardene infusion. Hospitalist following. Blood pressure looks good. 01/02/2017 blood pressure is controlled. Current Visit: Yes (4) Incarcerated ventral hernia Status: Acute Assessment and plan: She has had laparotomy for the hernia, but abdominal mass was encountered so she was not closed. 01/02/2017 status post repair. It has been closed Current Visit: Yes
--- NOTE | 2017-01-02 06:40 | XRay Report ---
Referring Physician: Kip Gill MD Exam: XR chest 1V portable Date: January 02, 2017 at 3:14 AM Reason: Respiratory failure, on ventilator Comparison: Chest one view portable January 01, 2017 Findings: An endotracheal tube and feeding tube are again in place. The cardiac silhouette is normal in size. There are mild scattered opacities within both lower lung zones, which is most consistent with atelectasis. No pneumothorax or pleural effusion is identified. The osseous structures appear stable. Impression: There has been no significant change. PROCEDURE INTERPRETED AT [facility] DEPARTMENT OF RADIOLOGY Final Report Signed by: Dr. Aniceto Ferreira
--- NOTE | 2017-01-02 08:13 | Event Note ---
Afebrile vital signs stable. Normotensive on a Cardizem drip opens eyes and moves all extremities. Still intubated. Probably for extubation today. Urine output okay. Creatinine slightly elevated. Pain appears controlled. On exam her abdomen is soft mildly distended and appears appropriately tender. Labs noted. H&H down. Probably a combination of blood loss from surgery and hemodilution from fluids. Bilirubin is down to nearly normal. I suspect this was all just congestion from the large mass in her upper abdomen compressing all of those structures. Plan: Continue nothing by mouth and NG tube. Await return of bowel function. Continue to monitor urine output and labs. Possibly going to be extubated today.
--- NOTE | 2017-01-02 08:31 | OB/GYN Progress Note ---
INFRASTRUCTURE ARCHITECT - PN: Subj Interval history: Patient is alert she is still on the ventilator. The results of her surgery were discussed with her and she gave visual indication that she understood. Her urine output is marginal at 35 cc an hour. Understand the plan today is to wean her off the ventilator. I will be out tomorrow and the rest the weekend however I will be back at the first of the week to follow-up but will be available by phone if any problems. Exam INFRASTRUCTURE ARCHITECT - Constitutional Vitals: Vital Signs Temp Pulse Pulse Resp BP Pulse Ox Pulse Ox 01/02/17 07:00 99 H 21 130/74 99 01/02/17 06:45 131/78 01/02/17 06:30 135/76 01/02/17 06:15 136/78 01/02/17 06:00 118 H 21 138/75 99 01/02/17 05:45 137/80 01/02/17 05:30 134/78 01/02/17 05:15 143/78 01/02/17 05:03 18 01/02/17 05:00 113 H 20 138/79 99 01/02/17 04:45 130/83 01/02/17 04:30 139/89 01/02/17 04:15 135/80 01/02/17 04:00 99.6 F 112 H 18 124/80 99 01/02/17 03:45 134/80 01/02/17 03:30 19 127/83 01/02/17 03:15 125/82 01/02/17 03:00 114 H 23 128/78 99 01/02/17 02:30 120/76 01/02/17 02:15 129/72 01/02/17 02:00 114 H 18 126/74 99 01/02/17 01:45 117 H 125/76 01/02/17 01:35 19 01/02/17 01:30 131/74 01/02/17 01:15 131/75 01/02/17 01:00 112 H 19 130/79 99 01/02/17 00:45 128/78 01/02/17 00:30 127/75 01/02/17 00:15 124/75 01/02/17 00:00 113 H 18 124/75 98 01/01/17 23:45 122/77 01/01/17 23:30 130/77 01/01/17 23:21 18 01/01/17 23:15 128/75 01/01/17 23:00 113 H 16 127/79 99 01/01/17 22:45 134/78 01/01/17 22:30 124/77 01/01/17 22:15 132/75 01/01/17 22:00 116 H 18 132/75 99 01/01/17 21:45 131/79 01/01/17 21:30 127/77 01/01/17 21:15 126/81 01/01/17 21:00 110 H 16 127/80 100 01/01/17 20:45 111 H 16 121/81 01/01/17 20:30 110 H 116/79 01/01/17 20:15 110 H 111/78 01/01/17 20:00 98 F 113 H 17 113/77 99 01/01/17 19:45 113 H 119/77 01/01/17 19:35 17 01/01/17 19:30 113 H 115/83 01/01/17 19:15 112 H 127/81 01/01/17 19:00 111 H 15 126/85 100 01/01/17 18:45 110 H 126/78 01/01/17 18:30 131/77 01/01/17 18:15 125/91 01/01/17 18:00 111 H 14 127/82 100 01/01/17 17:45 127/83 01/01/17 17:39 15 01/01/17 17:30 132/87 01/01/17 17:15 126/82 01/01/17 17:00 109 H 16 128/87 100 01/01/17 16:45 139/86 01/01/17 16:30 140/89 01/01/17 16:15 132/83 01/01/17 16:10 16 01/01/17 16:00 98.2 F 111 H 132 H 17 134/83 99 01/01/17 15:45 132/84 01/01/17 15:30 19 136/83 01/01/17 15:15 133/86 01/01/17 15:00 116 H 14 131/89 98 01/01/17 14:45 135/94 01/01/17 14:30 149/91 01/01/17 14:15 151/94 01/01/17 14:00 113 H 14 162/114 100 01/01/17 13:45 196/112 01/01/17 13:30 97.1 F L 99 H 16 120/84 100 01/01/17 13:20 99 H 15 01/01/17 10:00 145/89 01/01/17 09:45 160/93 01/01/17 09:30 153/97 01/01/17 09:15 160/98 01/01/17 09:00 107 H 18 157/100 99 01/01/17 08:51 22 100 01/01/17 08:45 145/86 01/01/17 08:30 136/87 Results - Labs CBC & BMP: 01/02/17 04:45 01/02/17 04:45
[2017-01-02 09:52] LABS: ABG HCO3 22.8 MMOL/L (20-26); ABG Oxygen Saturation 97.8 % (95-100); ABG PCO2 36.3 MM HG (35-48)
[2017-01-02] MEDS: ACETYLCYSTEINE 20% 6,000 MG/30 ML VIAL PO SCH (10:00)
--- NOTE | 2017-01-02 10:15 | Hospitalist Progress Note ---
Hospitalist: Subjective Interval history: Pt seen this am around 7:30am. She was started on Lopressor IV scheduled due to tachycardia. No fever. She had repeat surgery with hysterectomy yesterday. Plans for extubation today. No CT abd/pelvis done due to elevated creatinine. Exam - Constitutional Vitals: Period Temp Pulse Resp BP Sys/Au Pulse Ox Last 24 Hr 97.1 F-99.6 F 99-132 14-26 111-196/72-114 98-100 Exam: GEN: Pt is awake, alert, comfortable, intubated on the vent, NAD HEENT: PERRL, EOMI, sclera clear, conjunctiva pink, nares patent, of what could be visualized O/P clear NECK: supple, No JVD, trachea midline CV: regular rate and rhythm. Normal S1/ S2 no M/R/G LUNGS: CTAB nonlabored ABD: soft, appropriately tender to palpation, positive bowel sounds, suture in place and dressing is C/D/I EXT: Warm, well perfused. No C/C/E. NEURO: moves all extremities. Mild exotropia of the left eye. KING equally Results - Labs CBC & BMP: 01/02/17 04:45 01/02/17 04:45 Labs: reviewed/ Creatinine increased and Hgb dropped from 10 to 8 - Impressions * Acute abdominal pain due to incarcerated hernia due to abdominal mass ( suspect fibroids) s/p 12/31 exp lap; 01/01 hysterectomy and mass resections- mgt per primary service. IV pain control. NPO for now. F/U pathology. SPECIMEN COLLECTOR has been consulted. CT abd/pelvis with contrast. Cont PPI prophylaxis. Cont prophylactic Cefoxitin * Acute renal failure- worsening. Cont to hold Lasix and Avapro. She had orders for IVF and mucomyst. Check renal U/S. Urine sodium, creatinine, myoblobin and eosinophils and check renal U/S. Consult nephrology for further recs and Recheck RFP, Mg in am. Consult pharmacy to renally dose meds. * Acute expected blood loss anemia- due to recent surgery. Transfuse 2 U PRBCs when available. Recheck labs in am * Essential hypertension- Blood pressure controlled on Cardene drip. Monitor vitals. Postoperatively will try to wean when cleared by surgery for po and start on\ home meds * Acute hypoxic respiratory failure- management of vent per pulmonology * JESSICA- mgt per pulm DVT prophylaxis- SCDS D/W nurse and pt and all questions answered. 35 minutes of time spent with this patient. Quality Measures - VTE Contraindication to Pharmacological VTE Prophylaxis: High Risk of Bleeding
[2017-01-02] MEDS: METOPROLOL SUCCINATE XL 50 MG TABLET PO SCH (11:05)
[2017-01-02] MEDS: PANTOPRAZOLE 40 MG TABLET PO SCH (11:05)
[2017-01-02] MEDS: amLODIPine 10 MG TABLET PO SCH (11:05)
--- NOTE | 2017-01-02 11:17 | Pathology Report from [facility] ---
ACCESSION # : [id number] PATIENT NAME : Brenna Lindsay ORDERING DR : Jay Galvez MD CLINICAL HX: Incarcerated ventral hernia POST-OP DX: Same SPECIMEN INFO: #1 Omentum #2 Hernia sac #3 Incarcerated small bowel GROSS DESCRIPTION: Received in formalin in three parts labeled:#1 "BRENNA LINDSAY & #1" is an omental fragment measuring 13.0 x 9.4 cm. A medical service representative section is submitted in cassette #1.#2 "BRENNA LINDSAY & #2" is a fragment, fibrous tissue measuring 14.5 x 6.5 cm. Cricket Coach sections are submitted in cassette #2.# 3 "BRENNA LINDSAY & #3" consists of a segment of small bowel measuring 13.0 cm in length and 3.0 cm in greatest diameter. The serosa is hemorrhagic with a few fibrous bands noted which appear to constrict the lumen. The mucosal surface is red rushing with no mucosal lesions or perforations seen. Sections submitted 3A&3B- Surgical margins, 3C-Cricket Coach fibrous bands. DIAGNOSIS FOR BRENNA LINDSAY: #1 OMENTUM, PARTIAL RESECTION: Omentum with inflammation and hemorrhage c/w incarcerated hernia contents.#2 Inflamed mesothelial lined fibroconnective tissue with marked acute and chronic inflammation and adhesions.#3 SMALL BOWEL, PARTIAL RESECTION: Portion of small bowel with fibrous adhesions, serosal inflammation, and fibrosis c/w incarcerated hernia contents. SERVICE DATE: 01/01/2017 REPORT DATE: 01/02/2017 PATHOLOGIST: Ramsey Villafana
[2017-01-02 12:01] LABS: ABG Base Excess -2.8 MMOL/L (-2.5-2.5); ABG HCO3 22.1 MMOL/L (20-26); ABG Oxygen Saturation 97.5 % (95-100); ABG PCO2 37.7 MM HG (35-48); ABG PH 7.375 (7.35-7.45); ABG TCO2 20.8 MMOL/L (23-27); Pt O2 Delivery Device Venturi Mask
[2017-01-02] MEDS: METOPROLOL TARTRATE 5 MG/5 ML VIAL IV SCH ×2 (13:22→17:44)
[2017-01-02] MEDS ORDERED: SODIUM CHLORIDE 0.9% 250 ML IV PRN (14:22)
--- NOTE | 2017-01-02 15:51 | Ultrasound Report ---
US renal Bilateral Indication: Elevated creatinine. RENAL ULTRASOUND: Grayscale and color Doppler imaging the kidneys performed. Right kidney measures 97 x 53 x 59 mm. Left kidney measures 105 x 59 x 63 mm. No hydronephrosis, mass, cyst or calcification identified on either side. Color Doppler flow at both renal yoni documented. Impression: Negative ultrasound the kidneys. PROCEDURE INTERPRETED AT [facility] DEPARTMENT OF RADIOLOGY Final Report Signed by: Omid Donaldson M.D.
[2017-01-03] MEDS: MORPHINE 2 MG/1 ML SYRINGE IV PRN ×7 (00:06→21:21)
[2017-01-03] MEDS: METOPROLOL TARTRATE 5 MG/5 ML VIAL IV SCH ×4 (00:11→18:37)
--- NOTE | 2017-01-03 05:34 | Pulmonology Progress Note ---
Pulmonary - PN: Subj Interval history: This 46-year-old white female went back to surgery yesterday. 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 She had a hysterectomy. Her abdomen has been closed. She is alert and calm. She is still tachycardic with a rate of around 120. We will give her some IV metoprolol. Should be able to extubate this morning. 01/03/2017 patient doing well with low flow nasal oxygen. Heart rate is down to around 100. Blood pressure better controlled. Patient has obstructive sleep apnea and asking about her CPAP. Cannot really use that until we get her NG tube out. Defer to surgery on when that will be. Exam (Progress Note) - Constitutional Vitals: Period Temp Pulse Resp BP Sys/Au Pulse Ox Last 24 Hr 98.9 F-100.1 F 99-118 16-28 105-153/71-100 93-100 Exam: Patient is alert and responsive, on nasal oxygen. Pupils react to light. She has exophoria. Neck supple. Chest sounds clear. Heart rate around 100 with no murmurs. Abdomen is now closed bandage mildly tender. Decreased bowel sounds. Extremities no clubbing cyanosis edema. Calves nontender. Results - Labs CBC & BMP: 01/02/17 04:45 01/02/17 04:45 Lab Results: I have reviewed the past 24 hour labs Assessment and Plan (1) Abdominal mass Status: Acute Assessment and plan: This is going to require a CT scan and then most likely additional surgery. Concern over whether this may be a neuroendocrine tremor. 01/02/2017 she was taken back to surgery yesterday with multiple smooth muscle tumors removed. Also had hysterectomy and left oophorectomy. Had wound closed. Await final pathology reports. 01/03/2017 status post resection of multiple abdominal tumors. Await final pathology. Current Visit: Yes (2) Postoperative mechanical ventilation Status: Acute Assessment and plan: ABGs and chest x-ray look good. Should be able to wean her this morning. 01/02/2017 ABGs look good. Other than her tachycardia she should be ready for extubation. We will give her some IV metoprolol. She normally takes metoprolol by mouth. Need to get her heart rate down for weaning. 01/03/2017 we were able to get her extubated yesterday. She looks comfortable on nasal oxygen today. Could be moved to the floor from a pulmonary standpoint. Current Visit: Yes (3) Uncontrolled hypertension Status: Acute Assessment and plan: Presently on Cardene infusion. Hospitalist following. Blood pressure looks good. 01/02/2017 blood pressure is controlled. Current Visit: Yes (4) Incarcerated ventral hernia Status: Acute Assessment and plan: She has had laparotomy for the hernia, but abdominal mass was encountered so she was not closed. 01/02/2017 status post repair. It has been closed Current Visit: Yes
[2017-01-03 06:06] LABS: Basophils % 0.3 % (0.0-0.8); Eosinophils # 0.1 10*3/uL (0.0-0.87); Eosinophils % 0.6 % (0.00-10.9); Hemoglobin 9.4 GM/DL (12.0-16.0); Immature Granulocytes % 1.4 %; Immature Granulocytes Absolute 0.18 #; Lymphocytes % 7.7 % (21.3-54.2); Mean Corpuscular HGB Conc 31.3 GM/DL (32-36); Mean Corpuscular Hemoglobin 22 PG (27-34); Mean Corpuscular Volume 70.3 FL (87-102); Mean Platelet Volume 10.2 FL (9.6-12.0); Monocytes % 7.7 % (1.7-12.7); Neutrophils # 10.3 10*3/uL (1.4-7.4); Neutrophils % 82.3 % (38.7-73.9); Platelet Count 271 T/CUMM (130-400); Red Blood Count 4.27 MC/CUMM (3.8-5.5); Red Cell Distribution Width 21.9 % (9.3-17.3); White Blood Count 12.5 T/CUMM (4-12)
[2017-01-03 06:26] LABS: Hypochromasia 1+; Microcytosis 1+
[2017-01-03 06:27] LABS: Platelet Estimate Normal; Spherocytes Slight
[2017-01-03] MEDS: LACTATED RINGERS 1,000 ML IV SCH ×3 (06:36→23:57)
[2017-01-03 06:45] LABS: Albumin 1.7 G/DL (3.4-5.0); Calcium 7.4 MG/DL (8.5-10.1); Magnesium 2.3 MG/DL (1.8-2.4); Osmolality,Calculated 284.1 MOS/KG (273-304); Phosphorous 3.3 MG/DL (2.5-4.9); Potassium 4.2 MMOL/L (3.5-5.1)
[2017-01-03] MEDS: amLODIPine 10 MG TABLET PO SCH ×3 (08:11→10:34)
[2017-01-03] MEDS: PANTOPRAZOLE 40 MG TABLET PO SCH ×3 (08:11→10:34)
[2017-01-03] MEDS: METOPROLOL SUCCINATE XL 50 MG TABLET PO SCH ×3 (08:12→10:34)
--- NOTE | 2017-01-03 09:48 | Event Note ---
Status post repair of incarcerated hernia with small bowel resection and subsequent hysterectomy. Abdomen is closed. Patient has been extubated. Pathology on the large abdominal mass and uterus still pending but suspect these are fibroids She wants to go to the floor. Her Cardizem has been weaned to off overnight. Blood pressure is still moderately elevated in the 160s. Mild tachycardia. Afebrile. Good urine output. She wants to get up and move around and appears very motivated. Exam: Abdomen is soft moderately distended with bowel sounds present. NG tube with no significant output. It appears to be working. Incision looks good. The Labs noted. H&H stable. White blood cell count mildly elevated and she is on Mefoxin. Creatinine slightly more elevated at 1.8 today. Plan: We'll remove the NG tube and try clear liquids. She was instructed to go slow. We'll continue to watch her creatinine and continue her IV fluids. Recheck her labs tomorrow and if her white blood cell count comes down we could probably stop the Mefoxin. We'll start Lovenox. Abdomen acute her in the ICU another day because of her severe hypertension. She can be restarted on by mouth meds from my standpoint and if she is off the Cardizem throughout the day and night she could probably be transferred to the floor tomorrow if okay with consultants. Remove Agarwal if not needed by nephrology who has been consulted.
[2017-01-03] MEDS: ENOXAPARIN 40 MG/0.4 ML SYRINGE SUBCUT SCH (10:29)
[2017-01-03 11:16] LABS: Metanephrine, Free 0.35 nmol/L (<0.50); Normetanephrine, Free 2.2 nmol/L (<0.90)
--- NOTE | 2017-01-03 12:18 | Pathology Report from [facility] ---
ACCESSION # : [id number] PATIENT NAME : Georgi Lindsay ORDERING DR : DONN CARLSON MD CLINICAL HX: Omentectomy, small bowel resection, removal abd mass-uterus, cervix , LT salpingo-oophorectomy POST-OP DX: Same SPECIMEN INFO: Uterus, cervix, LT tube & ovary, fibroid GROSS DESCRIPTION: The specimen is received in formalin labeled with the patient 's name "GEORGI LINDSAY" and consists of a 1370 gram uterus with an unattached cervix measuring 4.0 x 15.5 x 9.0 cm with three pedunculated fibrous masses noted. The serosa measures 4.2 x 3.0 x 3.5 cm to 8.5 x 7.5 x 10.0 cm. The serosa is red-rushing with adhesions noted. The cervix measures 3.5 cm. The cervix measures 3.5 cm. The cervical os measures 0.7 cm. The endocervical canal is rushing and patent. The endometrial cavity is hyperemic with a mucosal thickness of 0.4 cm. Sectioning the cavity reveals a 0.8 x 0.6 x 1.0 cm rushing polyp. Sectioning reveals numerous firm white nodules measuring up to 9.0 cm. An ovary is attached to the uterus which is erythematous and measures 10.0 x 2.5 cm. Sectioning reveals a 0.1 cm hemorrhagic cyst. The adjacent fallopian tube is fimbriated and is adhesed to the surface of the ovary. The tube measures 3.5 x 1.0 cm with a few paratubal cysts noted measuring 1.8 x 1.5 cm. Sections A cervix, B and C endomyometrium, D serosal adhesions, E and F account maintenance representative nodules, G lt ovary and fallopian tube. Received separately in the container is a large fibrous mass weighing 4213 grams and measuring 27.5 x 19.5 x 14.8 cm. Cut surfaces of the mass have a homogenous, whorled pink-white appearance with an area of yellow-green mucosa seen measuring 4.5 x 4.0 cm. Sectioning the nodule reveals a fragment of omentum measuring 15.0 x 9.0 cm with multiple cysts noted measuring up to 1.5 cm. [employer] sections submitted in H - L. [id number]-Dosnmepla of cervix. DIAGNOSIS FOR GEORGI LINDSAY: UTERUS, LEFT OVARY & TUBE, HYSTERECTOMY WITH LEFT SALPINGO-OOPHORECTOMY: Cervical squamous mucosa showing focal mild dysplasia/ LSIL/ JYOTI 1, margins free of dysplasia Unremarkable endocervical glandular mucosa. Endometrial polyp. Uterine leiomyomas. Uterine serosal adhesions. Left tubo-ovarian adhesions. Hemorrhagic follicular cysts and numerous corpora lutea , left ovary. Unremarkable left fallopian tube. Portion of omentum with acute and chronic inflammation and fibrosis. SERVICE DATE: 01/01/2017 REPORT DATE: 01/03/2017 PATHOLOGIST: Bill Castellon M.D. JACLYN
--- NOTE | 2017-01-03 12:34 | Nephrology Consult Note ---
History of Present Illness Chief complaint: Increased BUN and creatinine History of present illness: Ms. Lindsay is a 46 year old female who was admitted to the hospital on 12/31/2016 for nausea and vomiting and fullness in her lower abdomen. The patient states she had been having nausea and vomiting for about a week prior to her admission. The patient was taken to the OR for exploratory laparotomy shortly after being admitted and was found to have an incarcerated hernia which was resected. She has also found to have a large intra-abdominal tumor that required resection the following day. We were asked to see the patient for increased creatinine. The patient's creatinine on admission was around 1 mg/dL a day later the patient's creatinine was up to 1.4 mg/dL and at this time her creatinine is increased to 1.8 mg/dL. The patient on her second hospital day had a contrasted CT scan done this was done the day after her initial operation. The patient was taken back to the OR one day after her CT scan and had some blood loss which required blood transfusions today. The patient's urine output decreased to around 35 cc an hour for a few hours after her second operation. The patient's urine output in the past few hours has been around 50- 60 cc an hour. Her creatinine seems to have stabilized somewhat at 1.8 mg/dL today up from 1.7 mg/dL yesterday. The patient denies previous kidney problems. She does give a long history of hypertension since she was 20 years of age. ROS: Head - denies headaches ENT - denies sore throat Lymphatics - denies lymphadenopathy Hematology - denies bleeding problems Heart - denies chest pain Lungs - denies shortness of breath Abdomen -positive abdominal pain, she states she was taking ibuprofen about 4 times a day for the past week due to her abdominal pain Musculoskeletal -positive arthritis Skin - denies rash Neurology - denies stroke General - denies fever PE: General: in no acute distress Eyes: Pupils are round and reactive, conjunctivae are clear ENT: Nose is clear, O/P is benign Neck: Supple, no thyromegaly Lymphatics: No cervical, supraclavicular or axillary adenopathy Heart: Regular rate and rhythm, no edema Lungs: Clear to auscultation anteriorly, chest expansion symmetric Abdomen: Soft, normoactive bowel sounds, no hepatomegaly Musculoskeletal: No joint erythema or effusions or joint asymmetry Skin: Normal turgor, normal hydration, no rash Neuro/Psych: Alert and cooperative with fair insight Home Medications Medication Instructions Recorded Confirmed Type Furosemide Tab [Lasix Tab] 20 mg PO BID 12/31/16 12/31/16 History Irbesartan 300 mg PO DAILY 12/31/16 12/31/16 History Metoprolol Succinate 50 mg PO DAILY 12/31/16 12/31/16 History amLODIPine [Norvasc] 10 mg PO DAILY 12/31/16 12/31/16 History Allergies Allergy/AdvReac Type Severity Reaction Status Date / Time amlodipine [From Tribenzor] AdvReac Severe HIVES Verified 01/03/17 07:09 hydrochlorothiazide AdvReac Severe HIVES Verified 01/03/17 07:09 [From Tribenzor] olmesartan [From Tribenzor] AdvReac Severe HIVES Verified 01/03/17 07:09 Medical,Surgical,& Family Hx - Medical History Cardio: History of: Hypertension Respiratory: History of: Obstructive Sleep Apnea - Family History Family History: Reports;: Family Hypertension, Family Stroke - Social History Smoking Status: Never smoker Frequency of Alcohol Use: None Type of Drug Use: None Exam - Vital Signs Vital signs: Period Temp Pulse Resp BP Sys/Au Pulse Ox Last 24 Hr 98.9 F-100.1 F 99-117 16-28 105-153/71-100 92-97 Results - Labs CBC & BMP: 01/03/17 05:28 01/03/17 05:28 Assessment and Plan (1) Acute renal failure Status: Acute Assessment and plan: This patient had an acute rise in her creatinine over the past 3 days or so. I suspect this is multifactorial in etiology related to some volume depletion with her nausea and vomiting presentation as well as some tubular injury related to malperfusion from blood loss and anemia as well as some injury from her contrasted CT scan done 2 days ago. The patient had a renal ultrasound that was unremarked. At this point I would continue the IV fluids and monitor for recovery. Current Visit: Yes (2) Hypertension Status: Acute Assessment and plan: Continue present meds Current Visit: Yes (3) Abdominal mass Status: Acute Assessment and plan: Follow-up pathology, patient had plasma metanephrines done that were unremarkable. Her Norepinephrine level was slightly elevated. Current Visit: Yes (4) Abdominal pain Status: Acute Current Visit: Yes (5) Incarcerated ventral hernia Status: Acute Current Visit: Yes (6) Blood loss anemia Status: Acute Current Visit: Yes
--- NOTE | 2017-01-03 16:10 | Hospitalist Progress Note ---
Hospitalist: Subjective Interval history: Patient has been extubated and is doing well. Pain is controlled. No fevers or chills. No chest pain or shortness of breath. She denies any flatus or bowel movements. Exam - Constitutional Vitals: Period Temp Pulse Resp BP Sys/Au Pulse Ox Last 24 Hr 98.3 F-100.1 F 95-117 17-28 113-162/76-112 92-98 Exam: GEN: Pt is awake, alert, comfortable, NAD NECK: supple, No JVD, trachea midline CV: regular rate and rhythm. Normal S1/ S2 no M/R/G LUNGS: CTAB nonlabored ABD: soft, appropriately tender to palpation, positive bowel sounds, suture in place and dressing is C/D/I EXT: Warm, well perfused. No C/C/E. NEURO: moves all extremities. Mild exotropia of the right eye. KING equally Results - Labs CBC & BMP: 01/03/17 05:28 01/03/17 05:28 - Impressions * Acute abdominal pain due to incarcerated hernia due to abdominal mass ( suspect fibroids) s/p 12/31 exp lap; 01/01 hysterectomy and mass resections- mgt per primary service. IV pain control. NPO this am but since surgery has started a clear diet. Pathology negative for malignancy. PRECISION DANCER has been consulted. CT abd pelvis with contrast reviewed. Cont PPI prophylaxis. On prophylactic Cefoxitin * Acute renal failure- seems to have plateaud. Cont to hold Lasix and Avapro. She had orders for IVF and mucomyst. Renal U/S unremarkable. Urine sodium, creatinine, myoblobin and eosinophils reviewed. Appreciate nephrology input. Serial labs. Renally dose meds. * Acute expected blood loss anemia- due to recent surgery. s/p 2 U PRBCs 01/01. Serial labs stable * Essential hypertension- Blood pressure controlled. Off Cardene drip this am. If she can maintain her BP with oral meds, can dc to floor in am. Monitor vitals. * * Acute hypoxic respiratory failure- resolved * JESSICA- mgt per pulm DVT prophylaxis- SCDS D/W nurse and pt and all questions answered. Quality Measures - VTE Contraindication to Pharmacological VTE Prophylaxis: High Risk of Bleeding
[2017-01-03] MEDS: niCARdipine INJ 25 MG in SODIUM CHLORIDE 0.9% 240 ML IV SCH (22:25)
[2017-01-04] MEDS: METOPROLOL TARTRATE 5 MG/5 ML VIAL IV SCH ×4 (00:09→19:06)
[2017-01-04] MEDS: MORPHINE 2 MG/1 ML SYRINGE IV PRN ×6 (00:14→22:06)
[2017-01-04 04:07] LABS: Basophils % 0.2 % (0.0-0.8); Eosinophils # 0.2 10*3/uL (0.0-0.87); Hematocrit 30.6 VOL% (35.7-47.0); Hemoglobin 9.3 GM/DL (12.0-16.0); Immature Granulocytes % 2.1 %; Immature Granulocytes Absolute 0.36 #; Lymphocytes # 1.2 10*3/uL (1.4-4.0); Mean Corpuscular HGB Conc 30.4 GM/DL (32-36); Mean Corpuscular Hemoglobin 22 PG (27-34); Mean Corpuscular Volume 72.3 FL (87-102); Mean Platelet Volume 10.2 FL (9.6-12.0); Monocytes # 1.4 10*3/uL (0.11-0.8); Monocytes % 8.1 % (1.7-12.7); Neutrophils # 13.7 10*3/uL (1.4-7.4); Neutrophils % 81.6 % (38.7-73.9); Platelet Count 311 T/CUMM (130-400); Red Blood Count 4.23 MC/CUMM (3.8-5.5); Red Cell Distribution Width 22.8 % (9.3-17.3); White Blood Count 16.8 T/CUMM (4-12)
[2017-01-04 04:35] LABS: Calcium 7.8 MG/DL (8.5-10.1); Osmolality,Calculated 283.1 MOS/KG (273-304); Potassium 4.2 MMOL/L (3.5-5.1)
[2017-01-04 04:45] LABS: Band Neutrophils 2 % (0-10); Eosinophils 1 % (0-10); Hypochromasia 2+; Lymphocytes 6 % (20-55); Platelet Estimate Normal; Segmented Neutrophils 88 % (50-85); Total Cells Counted 100
--- NOTE | 2017-01-04 08:20 | Hospitalist Progress Note ---
Hospitalist: Subjective Interval history: Pt is up in a chair. No fever. BP better controlled this am. Tolerating pills and sips. +flatus. Pain controlled. No nausea or vomiting. No dysuria. Reports cough ?sputum color. Exam - Constitutional Vitals: Period Temp Pulse Resp BP Sys/Au Pulse Ox Last 24 Hr 97.2 F-98.4 F 92-107 17-28 136-162/78-112 92-98 Exam: GEN: Pt is awake, alert, comfortable, NAD sitting in a chair NECK: supple, No JVD, trachea midline CV: regular rate and rhythm. Normal S1/ S2 no M/R/G LUNGS: CTAB nonlabored diminished at the bases ABD: soft, appropriately tender to palpation, positive bowel sounds, suture in place and dressing is C/D/I EXT: Warm, well perfused. No C/C/E. NEURO: moves all extremities. Mild exotropia of the right eye. KING equally Results - Labs CBC & BMP: 01/04/17 03:25 01/04/17 03:25 - Impressions * Acute abdominal pain due to incarcerated hernia due to abdominal mass ( suspect fibroids) s/p 12/31 exp lap; 01/01 hysterectomy and mass resections- mgt per primary service. IV pain control. NPO except ice chips, but can probably start clear diet. Diet per surgery. Pathology negative for malignancy. WARHEAD MAINTENANCE SPECIALIST has been consulted. CT abd/pelvis with contrast reviewed. Cont PPI prophylaxis. On prophylactic Cefoxitin * Acute renal failure- likely due to contrast and ATN- improving. Cont to hold Lasix and Avapro. She had orders for IVF and mucomyst. Renal U/S unremarkable. Urine sodium, creatinine, myoblobin and eosinophils reviewed. Renal following. Serial labs. Renally dose meds. * Leukocytosis- etiology unclear. Agarwal removed. * Acute expected blood loss anemia- due to recent surgery. s/p 2 U PRBCs 01/01. Serial labs stable so far. * Essential hypertension- Blood pressure controlled. Off Cardene drip this am. If she can maintain her BP with oral meds, can dc to floor in am. Monitor vitals. * * Acute hypoxic respiratory failure- resolved * JESSICA- mgt per pulm DVT prophylaxis- Lovenox/ SCDs D/W nurse and pt and all questions answered. I will be away several days. One of my associates will follow in my absence. Quality Measures - VTE Contraindication to Pharmacological VTE Prophylaxis: High Risk of Bleeding
[2017-01-04 08:46] LABS: 5-Hydroxyindoleacetic Acid, U 4.1 mg/24 h (<=8.0)
[2017-01-04] MEDS: METOPROLOL SUCCINATE XL 50 MG TABLET PO SCH (08:47)
[2017-01-04] MEDS: PANTOPRAZOLE 40 MG TABLET PO SCH (08:47)
[2017-01-04] MEDS: amLODIPine 10 MG TABLET PO SCH (08:47)
[2017-01-04] MEDS: ENOXAPARIN 40 MG/0.4 ML SYRINGE SUBCUT SCH (09:00)
[2017-01-04 09:30] LABS: Apearance,Urine CLOUDY (Clear); Bacteria,Urine Occasional /HPF (Few); Bilirubin,Urine Negative (Negative); Blood, Urine Large mg/dL (Negative); Glucose,Urine (UA) Negative (Negative); Ketones,Urine 80 mg/dL (Negative); Mucus,Urine Occasional /LPF (Occasional); Nitrite,Urine Negative (Negative); Protein,Urine 30 MG/DL; RBC,Urine 27 /HPF (0-4); Squamous Epithelial Cell,Urine Few /HPF (0-10); Urine Color Yellow (Yellow); Urine Specific Gravity 1.013 (1.001-1.035); Urine Urobilinogen < 2.0 EU/DL (0.2-1.0); WBC,Urine 35 /HPF (0-6)
--- NOTE | 2017-01-04 10:37 | Event Note ---
She feels well. She is up in a chair and has been making it to the bedside commode without difficulty. He is tolerating sips of liquids and we will advance her diet a little bit. She states that she is had some flatus. Her vital signs are stable and she desires to go to a regular room. We'll transfer her to the floor today. I'm going to cut back her IV fluid.
--- NOTE | 2017-01-04 11:16 | XRay Report ---
Portable chest Date: 01/04/2017 Clinical history: Cough, leukocytosis Comparison: 01/02/2017 Technique: Portable AP sitting chest Findings: The heart is borderline in size. Expiratory chest with progressive parenchymal findings at the lung bases. Interval removal of the endotracheal tube and nasogastric tube. Impression: Removal of the endotracheal tube and nasogastric tube. Expiratory chest with progressive atelectasis/infiltration at the lung bases. PROCEDURE INTERPRETED AT [facility] DEPARTMENT OF RADIOLOGY Final Report Signed by: Dr. Adriana Srinivasan
--- NOTE | 2017-01-04 13:08 | Nephrology Progress Note ---
Nephrology - PN: Subj Interval history: She is up in the chair today. She denies shortness of breath nausea or abdominal pain. Exam (PN)-Nephrology - Vital Signs Vital signs: Period Temp Pulse Resp BP Sys/Au Pulse Ox Last 24 Hr 97.2 F-99.3 F 92-102 17- 136-164/78-105 92-98 Exam: ENT: Normal Cardiovascular: Regular rate and rhythm. No murmur rub or gallop Lungs: Clear Extremities: No edema - Lab 01/04/17 03:25 01/04/17 03:25 Most recent lab results ABG pH 7.375 (7.35-7.45) 01/02/17 12:00 ABG pCO2 37.7 MM HG (35-48) 01/02/17 12:00 ABG pO2 100.0 MM HG (80-95) H 01/02/17 12:00 ABG HCO3 22.1 MMOL/L (20-26) 01/02/17 12:00 ABG O2 Saturation 97.5 % (95-100) 01/02/17 12:00 Calcium 7.8 MG/DL (8.5-10.1) L 01/04/17 03:25 Phosphorus 3.3 MG/DL (2.5-4.9) 01/03/17 05:28 Magnesium 2.3 MG/DL (1.8-2.4) 01/03/17 05:28 Assessment and Plan (1) Acute renal failure Status: Acute Assessment and plan: Renal function has improved significantly. It is near normal. Urine output is adequate. No change in treatment Current Visit: Yes (2) Hypertension Status: Acute Current Visit: Yes (3) Incarcerated ventral hernia Status: Acute Current Visit: Yes
[2017-01-04 13:52] LABS: CATU Collection Duration 24 h; CATU Dopamine Frac 202 mcg/24 h (65-400); CATU Epinephrine Frac 11 mcg/24 h (<21); CATU Norepinephrine Frac 82 mcg/24 h (15-80); CATU Specimen Volume 1700 mL
[2017-01-04] MEDS: LACTATED RINGERS 1,000 ML IV SCH (14:32)
[2017-01-05] MEDS: METOPROLOL TARTRATE 5 MG/5 ML VIAL IV SCH ×5 (00:10→23:37)
[2017-01-05] MEDS: MORPHINE 2 MG/1 ML SYRINGE IV PRN ×8 (00:20→23:37)
[2017-01-05] MEDS: niCARdipine INJ 25 MG in SODIUM CHLORIDE 0.9% 240 ML IV SCH (02:01)
[2017-01-05 06:16] LABS: Basophils # 0.1 10*3/uL (0.0-0.2); Basophils % 0.2 % (0.0-0.8); Eosinophils # 0.2 10*3/uL (0.0-0.87); Hematocrit 30.2 VOL% (35.7-47.0); Hemoglobin 9.2 GM/DL (12.0-16.0); Immature Granulocytes % 3.1 %; Immature Granulocytes Absolute 0.67 #; Lymphocytes # 1.3 10*3/uL (1.4-4.0); Lymphocytes % 5.9 % (21.3-54.2); Mean Corpuscular HGB Conc 30.5 GM/DL (32-36); Mean Corpuscular Hemoglobin 22 PG (27-34); Mean Corpuscular Volume 71.9 FL (87-102); Mean Platelet Volume 10.2 FL (9.6-12.0); Monocytes # 1.3 10*3/uL (0.11-0.8); Monocytes % 5.9 % (1.7-12.7); Neutrophils # 18.1 10*3/uL (1.4-7.4); Neutrophils % 83.9 % (38.7-73.9); Platelet Count 387 T/CUMM (130-400); Red Cell Distribution Width 23.4 % (9.3-17.3); White Blood Count 21.6 T/CUMM (4-12)
[2017-01-05 06:46] LABS: Albumin 1.5 G/DL (3.4-5.0); Calcium 7.4 MG/DL (8.5-10.1); Osmolality,Calculated 278.4 MOS/KG (273-304); Phosphorous 2.1 MG/DL (2.5-4.9); Potassium 3.9 MMOL/L (3.5-5.1)
--- NOTE | 2017-01-05 07:03 | Event Note ---
She is doing well. She is afebrile with stable vital signs. Renal function was returned to normal. We will try to get her up more and more active
[2017-01-05 07:40] LABS: Band Neutrophils 2 % (0-10); Hypochromasia 2+; Lymphocytes 7 % (20-55); Microcytosis 1+; Platelet Estimate Adequate; Segmented Neutrophils 84 % (50-85); Total Cells Counted 100
[2017-01-05] MEDS: LACTATED RINGERS 1,000 ML IV SCH ×2 (08:13→08:14)
[2017-01-05] MEDS: amLODIPine 10 MG TABLET PO SCH (08:58)
[2017-01-05] MEDS: METOPROLOL SUCCINATE XL 50 MG TABLET PO SCH (08:58)
[2017-01-05] MEDS: PANTOPRAZOLE 40 MG TABLET PO SCH (08:58)
[2017-01-05] MEDS: ENOXAPARIN 40 MG/0.4 ML SYRINGE SUBCUT SCH (09:00)
--- NOTE | 2017-01-05 11:50 | Hospitalist Progress Note ---
Assessment and Plan - Time spent with patient Time spent with patient: Less than 30 minutes (1) Abdominal pain Status: Acute Assessment and plan: * Acute abdominal pain due to incarcerated hernia due to abdominal mass ( suspect fibroids) s/p 12/31 exp lap; 01/01 hysterectomy and mass resections- mgt per primary service. IV pain control. NPO except ice chips, but can probably start clear diet. Diet per surgery. Pathology negative for malignancy. TEST INSPECTION ENGINEER has been consulted. CT abd/pelvis with contrast reviewed. Cont PPI prophylaxis. On prophylactic Cefoxitin * Acute renal failure- likely due to contrast and ATN- improving. Cont to hold Lasix and Avapro. She had orders for IVF. Renal U/S unremarkable. Urine sodium, creatinine, myoblobin and eosinophils reviewed. Renal following. Serial labs. Renally dose meds. * Leukocytosis- etiology unclear. Agarwal removed. * Acute expected blood loss anemia- due to recent surgery. s/p 2 U PRBCs 01/01. Serial labs stable so far. * Essential hypertension- Blood pressure controlled. Off Cardene drip this am. If she can maintain her BP with oral meds, can dc to floor in am. Monitor vitals. * Acute hypoxic respiratory failure- resolved * JESSICA- mgt per pulm DVT prophylaxis- Lovenox/ SCDs Current Visit: Yes (2) Uncontrolled hypertension Status: Acute Current Visit: Yes (3) Incarcerated ventral hernia Status: Acute Current Visit: Yes (4) Acute renal failure Status: Acute Current Visit: Yes Hospitalist: Subjective Interval history: pt doing well transferred to floor no concerns or complaints feels well BP still on the high side but better Cr back to baseline Exam - Constitutional Vitals: Period Temp Pulse Resp BP Sys/Au Pulse Ox Last 24 Hr 97.6 F-100.9 F 80-100 18-24 140-159/85-93 94-98 General appearance: normal weight, no acute distress - Head Head exam: Present: normal inspection, normocephalic - Eye Eye exam: Present: EOMI Pupils: Present: IRON - ENT ENT exam: Present: normal exam - Neck Neck exam: Present: normal inspection - Respiratory Respiratory exam: Present: clear to auscultation bilaterally. Absent: accessory muscle use, chest wall tenderness - Cardiovascular Cardiovascular exam: Present: regular rate and rhythm. Absent: irregular rhythm , JVD - GI/Abdominal GI/Abdominal exam: Present: normal bowel sounds, soft. Absent: ascites, distended, firm - Extremities Exam Extremities exam: Present: normal inspection, normal capillary refill, full ROM Results - Labs CBC & BMP: 01/05/17 05:31 01/05/17 05:31 Lab Results: I have reviewed the past 24 hour labs Quality Measures - VTE Contraindication to Pharmacological VTE Prophylaxis: High Risk of Bleeding
--- NOTE | 2017-01-05 14:25 | Nephrology Progress Note ---
Nephrology - PN: Subj Interval history: No shortness of breath. No new symptoms. Exam (PN)-Nephrology - Vital Signs Vital signs: Period Temp Pulse Resp BP Sys/Au Pulse Ox Last 24 Hr 97.6 F-100.9 F 80-100 17-20 140-159/85-95 94-99 Exam: ENT: Normal Cardiovascular: Regular rate and rhythm. No murmur rub or gallop Lungs: Clear Extremities: No edema - Lab 01/05/17 05:31 01/05/17 05:31 Most recent lab results ABG pH 7.375 (7.35-7.45) 01/02/17 12:00 ABG pCO2 37.7 MM HG (35-48) 01/02/17 12:00 ABG pO2 100.0 MM HG (80-95) H 01/02/17 12:00 ABG HCO3 22.1 MMOL/L (20-26) 01/02/17 12:00 ABG O2 Saturation 97.5 % (95-100) 01/02/17 12:00 Calcium 7.4 MG/DL (8.5-10.1) L 01/05/17 05:31 Phosphorus 2.1 MG/DL (2.5-4.9) L 01/05/17 05:31 Magnesium 2.3 MG/DL (1.8-2.4) 01/03/17 05:28 Assessment and Plan (1) Acute renal failure Status: Acute Assessment and plan: Renal function back to baseline. No change in treatment Current Visit: Yes (2) Hypertension Status: Acute Current Visit: Yes (3) Incarcerated ventral hernia Status: Acute Current Visit: Yes
[2017-01-06] MEDS: niCARdipine INJ 25 MG in SODIUM CHLORIDE 0.9% 240 ML IV SCH (01:34)
[2017-01-06] MEDS: LACTATED RINGERS 1,000 ML IV SCH ×3 (01:35→23:10)
[2017-01-06] MEDS: MORPHINE 2 MG/1 ML SYRINGE IV PRN ×5 (03:17→23:32)
[2017-01-06 05:20] LABS: Basophils # 0.1 10*3/uL (0.0-0.2); Basophils % 0.2 % (0.0-0.8); Eosinophils # 0.1 10*3/uL (0.0-0.87); Eosinophils % 0.5 % (0.00-10.9); Hematocrit 28.5 VOL% (35.7-47.0); Immature Granulocytes % 5.3 %; Immature Granulocytes Absolute 1.28 #; Lymphocytes # 1.3 10*3/uL (1.4-4.0); Lymphocytes % 5.5 % (21.3-54.2); Mean Corpuscular HGB Conc 31.6 GM/DL (32-36); Mean Corpuscular Hemoglobin 22 PG (27-34); Mean Corpuscular Volume 69.5 FL (87-102); Mean Platelet Volume 10.3 FL (9.6-12.0); Monocytes # 1.2 10*3/uL (0.11-0.8); Monocytes % 4.9 % (1.7-12.7); Neutrophils # 20.1 10*3/uL (1.4-7.4); Neutrophils % 83.6 % (38.7-73.9); Platelet Count 374 T/CUMM (130-400); Red Cell Distribution Width 23.7 % (9.3-17.3); White Blood Count 24.1 T/CUMM (4-12)
[2017-01-06 05:47] LABS: Calcium 7.2 MG/DL (8.5-10.1); Magnesium 1.7 MG/DL (1.8-2.4); Osmolality,Calculated 271.8 MOS/KG (273-304); Potassium 3.9 MMOL/L (3.5-5.1)
[2017-01-06 06:23] LABS: Band Neutrophils 1 % (0-10); Eosinophils 1 % (0-10); Hypochromasia 1+; Lymphocytes 2 % (20-55); Microcytosis 1+; Nucleated Red Blood Cells 1 (0-5); Platelet Estimate Adequate; Segmented Neutrophils 90 % (50-85); Target Cells Few; Total Cells Counted 100
[2017-01-06] MEDS: METOPROLOL TARTRATE 5 MG/5 ML VIAL IV SCH ×4 (06:24→23:27)
--- NOTE | 2017-01-06 06:54 | OB/GYN Progress Note ---
SKATING CARHOP - PN: Subj Interval history: Pathology is reviewed and fibroids noted to be not benign. 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
--- NOTE | 2017-01-06 08:08 | Pulmonology Progress Note ---
Pulmonary - PN: Subj Interval history: This 46-year-old white female went back to surgery yesterday. 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 She had a hysterectomy. Her abdomen has been closed. She is alert and calm. She is still tachycardic with a rate of around 120. We will give her some IV metoprolol. Should be able to extubate this morning. 01/03/2017 patient doing well with low flow nasal oxygen. Heart rate is down to around 100. Blood pressure better controlled. Patient has obstructive sleep apnea and asking about her CPAP. Cannot really use that until we get her NG tube out. Defer to surgery on when that will be. 01/06/2017 patient doing well with low flow nasal oxygen. She is eating and drinking now. Pathology has come back benign. His urinary tract infection. She is on Mefoxin. Check urine cultures as it is gram-positive. Exam (Progress Note) - Constitutional Vitals: Period Temp Pulse Resp BP Sys/Au Pulse Ox Last 24 Hr 97.9 F-100.1 F 91-106 16-18 143-156/83-97 95-99 Exam: Patient is alert and responsive, on nasal oxygen. Pupils react to light. She has exophoria. Neck supple. Chest sounds clear. Heart rate around 100 with no murmurs. Abdomen is now closed bandage mildly tender. Decreased bowel sounds. Extremities no clubbing cyanosis edema. Calves nontender. Seems more comfortable than Friday otherwise little change. Results - Labs CBC & BMP: 01/06/17 04:25 01/06/17 04:25 Lab Results: I have reviewed the past 24 hour labs Assessment and Plan (1) Abdominal mass Status: Acute Assessment and plan: This is going to require a CT scan and then most likely additional surgery. Concern over whether this may be a neuroendocrine tremor. 01/02/2017 she was taken back to surgery yesterday with multiple smooth muscle tumors removed. Also had hysterectomy and left oophorectomy. Had wound closed. Await final pathology reports. 01/03/2017 status post resection of multiple abdominal tumors. Await final pathology. 01/06/2017 apparently the largest mass was a fibroid tumor of the uterus. Pathology reports all benign. Current Visit: Yes (2) Postoperative mechanical ventilation Status: Acute Assessment and plan: ABGs and chest x-ray look good. Should be able to wean her this morning. 01/02/2017 ABGs look good. Other than her tachycardia she should be ready for extubation. We will give her some IV metoprolol. She normally takes metoprolol by mouth. Need to get her heart rate down for weaning. 01/03/2017 we were able to get her extubated yesterday. She looks comfortable on nasal oxygen today. Could be moved to the floor from a pulmonary standpoint. 01/06/2017 doing well on nasal oxygen. Current Visit: Yes (3) Uncontrolled hypertension Status: Acute Assessment and plan: Presently on Cardene infusion. Hospitalist following. Blood pressure looks good. 01/02/2017 blood pressure is controlled. 01/06/2017 blood pressure is well controlled now. Current Visit: Yes (4) Incarcerated ventral hernia Status: Acute Assessment and plan: She has had laparotomy for the hernia, but abdominal mass was encountered so she was not closed. 01/02/2017 status post repair. It has been closed 01/06/2017 this has been repaired surgically. Current Visit: Yes
[2017-01-06] MEDS: amLODIPine 10 MG TABLET PO SCH (10:12)
[2017-01-06] MEDS: PANTOPRAZOLE 40 MG TABLET PO SCH (10:12)
[2017-01-06] MEDS: METOPROLOL SUCCINATE XL 50 MG TABLET PO SCH (10:12)
[2017-01-06] MEDS: ENOXAPARIN 40 MG/0.4 ML SYRINGE SUBCUT SCH (10:13)
--- NOTE | 2017-01-06 10:45 | Event Note ---
Postop day #5/6. Overall, the patient is improving. She is becoming more mobile and tolerating a clear liquid diet without difficulty. She has not had a bowel movement but she is passing flatus. Voiding without difficulty. Urinalysis recently indicated UTI with gram-positive cocci on cultures with final speciation pending. Patient noted to have low-grade temperature over the weekend as well as increasing leukocytosis. Patient continues on Mefoxin. Renal function stable with creatinine 1.3. Patient without shortness of breath on low flow nasal cannula. Physical exam: Vital signs stable this morning Lungs: Clear to auscultation bilaterally Heart: Regular rate and rhythm Abdomen: Surgical incision with serous drainage distally worse in the periumbilical region with associated erythema. Patient was placed in bed with the kimmy removed at which time copious purulent drainage was expressed and cultures were obtained. [place] were removed and the wound was opened approximately 5 cm distal to the umbilicus and 8 cm proximal to the umbilicus. Fascia was noted intact beneath. The area was irrigated with saline and repacked with Kerlix gauze with abdominal wound left open and clean dry dressing in place. Extremities: Calves soft and nontender. No pedal edema appreciated. Diagnostics: Labs reviewed with white blood cell count increased to 24; H&H 928 Urine culture gram-positive cocci Pathology without malignancy noted. Please see report. Assessment and plan: 1. Incarcerated visceral hernia s/p laparotomy with surgical incision infection which was evacuated and irrigated today at bedside. Continue Mefoxin and await cultures; abdominal binder. Advance to full liquid diet and monitor bowel function. Repeat dressing change in a.m. No further surgical debridement indicated at this time. Path without malignancy. 2. Status post hysterectomy with left salpingoophorectomy. Path without malignancy. 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 3. UTI: Gram-positive cocci on cultures with final results pending. Appreciate hospitalist input for coverage. 4. Acute renal failure: Likely some chronic kidney disease at baseline. Creatinine has stabilized at this point. Continue to monitor renal function and renally dose medications. Appreciate nephrology input. 5. H/o HTN - Pt on norvasc and metoprolol PO; metoprolol lV also scheduled - BP still elevated but improved. Appreciate hospitalist input. 6. Blood loss anemia. H&H is stable at this time. 7. DVT ppx: continue lovenox 8. GI ppx: continue PPI
--- NOTE | 2017-01-06 11:39 | Hospitalist Progress Note ---
Assessment and Plan (1) Hypertension Status: Acute Assessment and plan: Impression: 1. Hypertension, adequately controlled 2. Leukocytosis Recommendations: Continue current antihypertensives as is. This note was completed using [employer] voice recognition software. There may be activities specialist errors as a result. Current Visit: Yes Hospitalist: Subjective Interval history: We are following the patient for hypertension. She reports no new complaints. She has been up and about in the room, and is been able to go from the bathroom to the bedside unassisted. She reports a little edema in the feet. She also reports a cough that has been productive of some yellow sputum. Exam - Constitutional Vitals: Period Temp Pulse Resp BP Sys/Au Pulse Ox Last 24 Hr 97.9 F-100.1 F 89-106 16-18 143-156/83-97 93-99 Blood pressure is adequately controlled. Heart is regular with distant tones and no murmur or gallop. Some decreased breath sounds in both bases, but I do not hear any rales. She has a millimeter or 2 of edema in both feet. Results - Labs CBC & BMP: 01/06/17 04:25 01/06/17 04:25 Lab Results: I have reviewed the past 24 hour labs (White count is trending up. Chest x-ray post extubation showed some atelectasis.) Quality Measures - VTE Contraindication to Pharmacological VTE Prophylaxis: High Risk of Bleeding
--- NOTE | 2017-01-06 16:58 | Nephrology Progress Note ---
Nephrology - PN: Subj Interval history: Creatinine 1.3, baseline 1.0, UCx 15Apr with >100k colonies enterococcus. WBC up to 24K from 21k yesterday. Febrile to 100.5. Start levaquin 250mg po daily x 3 days. Exam (PN)-Nephrology - Vital Signs Vital signs: Period Temp Pulse Resp BP Sys/Au Pulse Ox Last 24 Hr 98.0 F-100.5 F 89-106 16-18 143-156/83-97 93-97 - General Appearance General appearance: well-developed, chronically ill EENT: ATNC, PERRL Neck: no JVD, no thyromegaly Respiratory: no kyphosis, clear Cardiology: no murmurs, no rub Integumentary: no rash, warm and dry Neurologic: no focal deficit, no asterixis Musculoskeletal: no deformities, no erythema - Lab 01/06/17 04:25 01/06/17 04:25 Most recent lab results ABG pH 7.375 (7.35-7.45) 01/02/17 12:00 ABG pCO2 37.7 MM HG (35-48) 01/02/17 12:00 ABG pO2 100.0 MM HG (80-95) H 01/02/17 12:00 ABG HCO3 22.1 MMOL/L (20-26) 01/02/17 12:00 ABG O2 Saturation 97.5 % (95-100) 01/02/17 12:00 Calcium 7.2 MG/DL (8.5-10.1) L 01/06/17 04:25 Phosphorus 2.1 MG/DL (2.5-4.9) L 01/05/17 05:31 Magnesium 1.7 MG/DL (1.8-2.4) L 01/06/17 04:25 Assessment and Plan (1) KEILA (acute kidney injury) Problem details: [place] due to contrast, initially returned to baseline. Now creatinine up to 1.3. UTI with enterococcus. Likely not responsive to 2nd generation cephalosporin. Start levaquin 250mg po daily x 3 days. Status: Acute Current Visit: Yes (2) UTI (urinary tract infection) due to Enterococcus Status: Acute Current Visit: Yes
[2017-01-06] MEDS ORDERED: LEVOFLOXACIN 500 MG TABLET PO SCH (17:00)
[2017-01-06] MEDS: LEVOFLOXACIN INJ 250 MG in PREMIX 1 EACH IV SCH (18:28)
[2017-01-07] MEDS: MORPHINE 2 MG/1 ML SYRINGE IV PRN ×2 (05:29→23:24)
[2017-01-07 06:15] LABS: Basophils % 0.2 % (0.0-0.8); Eosinophils # 0.2 10*3/uL (0.0-0.87); Eosinophils % 0.7 % (0.00-10.9); Hematocrit 27.5 VOL% (35.7-47.0); Hemoglobin 8.6 GM/DL (12.0-16.0); Immature Granulocytes % 7.4 %; Immature Granulocytes Absolute 1.71 #; Lymphocytes # 1.6 10*3/uL (1.4-4.0); Lymphocytes % 6.9 % (21.3-54.2); Mean Corpuscular HGB Conc 31.3 GM/DL (32-36); Mean Corpuscular Hemoglobin 22 PG (27-34); Mean Corpuscular Volume 71.4 FL (87-102); Mean Platelet Volume 9.7 FL (9.6-12.0); Monocytes # 1.4 10*3/uL (0.11-0.8); Neutrophils # 18.3 10*3/uL (1.4-7.4); Neutrophils % 78.8 % (38.7-73.9); Platelet Count 339 T/CUMM (130-400); Red Blood Count 3.85 MC/CUMM (3.8-5.5); Red Cell Distribution Width 23.8 % (9.3-17.3); White Blood Count 23.2 T/CUMM (4-12)
[2017-01-07] MEDS: METOPROLOL TARTRATE 5 MG/5 ML VIAL IV SCH ×4 (06:23→23:15)
[2017-01-07 06:39] LABS: Band Neutrophils 2 % (0-10); Hypochromasia 1+; Lymphocytes 7 % (20-55); Microcytosis 1+; Segmented Neutrophils 89 % (50-85); Total Cells Counted 100
[2017-01-07 06:40] LABS: Platelet Estimate Normal
--- NOTE | 2017-01-07 08:18 | Pulmonology Progress Note ---
Pulmonary - PN: Subj Interval history: This 46-year-old white female went back to surgery yesterday. 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 She had a hysterectomy. Her abdomen has been closed. She is alert and calm. She is still tachycardic with a rate of around 120. We will give her some IV metoprolol. Should be able to extubate this morning. 01/03/2017 patient doing well with low flow nasal oxygen. Heart rate is down to around 100. Blood pressure better controlled. Patient has obstructive sleep apnea and asking about her CPAP. Cannot really use that until we get her NG tube out. Defer to surgery on when that will be. 01/06/2017 patient doing well with low flow nasal oxygen. She is eating and drinking now. Pathology has come back benign. His urinary tract infection. She is on Mefoxin. Check urine cultures as it is gram-positive. 01/07/2017 patient is afebrile. Starting to take soft diet. No dyspnea. Oxygen saturations were good. Will recheck chest x-ray in the morning. Exam (Progress Note) - Constitutional Vitals: Period Temp Pulse Resp BP Sys/Au Pulse Ox Last 24 Hr 97.6 F-100.5 F 76-97 16-20 126-156/73-86 93-98 Exam: Patient is alert and responsive, on nasal oxygen. Pupils react to light. She has exophoria. Neck supple. Chest sounds clear. Heart rate around 80 with no murmurs. Abdomen is now closed bandage mildly tender. Decreased bowel sounds. Extremities no clubbing cyanosis edema. Calves nontender. Results - Labs CBC & BMP: 01/07/17 06:00 01/06/17 04:25 Lab Results: I have reviewed the past 24 hour labs Assessment and Plan (1) Abdominal mass Status: Acute Assessment and plan: This is going to require a CT scan and then most likely additional surgery. Concern over whether this may be a neuroendocrine tremor. 01/02/2017 she was taken back to surgery yesterday with multiple smooth muscle tumors removed. Also had hysterectomy and left oophorectomy. Had wound closed. Await final pathology reports. 01/03/2017 status post resection of multiple abdominal tumors. Await final pathology. 01/06/2017 apparently the largest mass was a fibroid tumor of the uterus. Pathology reports all benign. Current Visit: Yes (2) Postoperative mechanical ventilation Status: Acute Assessment and plan: ABGs and chest x-ray look good. Should be able to wean her this morning. 01/02/2017 ABGs look good. Other than her tachycardia she should be ready for extubation. We will give her some IV metoprolol. She normally takes metoprolol by mouth. Need to get her heart rate down for weaning. 01/03/2017 we were able to get her extubated yesterday. She looks comfortable on nasal oxygen today. Could be moved to the floor from a pulmonary standpoint. 01/06/2017 doing well on nasal oxygen. 01/07/2017 respiratory failure has resolved Current Visit: Yes (3) Uncontrolled hypertension Status: Acute Assessment and plan: Presently on Cardene infusion. Hospitalist following. Blood pressure looks good. 01/02/2017 blood pressure is controlled. 01/06/2017 blood pressure is well controlled now. 01/07/2017 blood pressure and pulse well controlled with current medications. Current Visit: Yes (4) Incarcerated ventral hernia Status: Acute Assessment and plan: She has had laparotomy for the hernia, but abdominal mass was encountered so she was not closed. 01/02/2017 status post repair. It has been closed 01/06/2017 this has been repaired surgically. 01/07/2017 apparently has an infection at the wound site. Currently on antibiotics. Surgery following. Current Visit: Yes (5) UTI (urinary tract infection) due to Enterococcus Status: Acute Assessment and plan: This is widely sensitive. Should be covered with current antibiotics. Current Visit: Yes
--- NOTE | 2017-01-07 09:29 | Hospitalist Progress Note ---
Assessment and Plan (1) Hypertension Status: Acute Assessment and plan: Impression: 1. Hypertension, adequately controlled 2. Leukocytosis Recommendations: Continue current blood pressure medications. This note was completed using [employer] voice recognition software. There may be speeder tender errors as a result. Current Visit: Yes Hospitalist: Subjective Interval history: Follow-up hypertension. The patient is up in the chair. She offers no complaints. She says that she has been up walking this morning. She denies any significant dyspnea or chest discomfort. Exam - Constitutional Vitals: Period Temp Pulse Resp BP Sys/Au Pulse Ox Last 24 Hr 97.6 F-100.5 F 76-97 16-20 126-156/73-86 93-98 Blood pressure looks good. Heart is regular with no murmur or gallop. She has some decreased breath sounds in both bases, but otherwise is moving air fairly well. Results - Labs CBC & BMP: 01/07/17 06:00 01/06/17 04:25 Lab Results: I have reviewed the past 24 hour labs (White count is fairly stable.) Quality Measures - VTE Contraindication to Pharmacological VTE Prophylaxis: High Risk of Bleeding
--- NOTE | 2017-01-07 10:15 | Nephrology Progress Note ---
Nephrology - PN: Subj Interval history: Pt denies SOB/pain. Exam (PN)-Nephrology - Vital Signs Vital signs: Period Temp Pulse Resp BP Sys/Au Pulse Ox Last 24 Hr 97.6 F-100.5 F 76-97 16-20 126-156/73-86 93-98 - General Appearance General appearance: well-developed, obese EENT: ATNC, PERRL Neck: no JVD, no thyromegaly Respiratory: no kyphosis, clear Cardiology: no murmurs, no rub Gastrointestinal: normoactive bowel sounds, no tenderness Integumentary: no rash, warm and dry Neurologic: no focal deficit, no asterixis, alert and oriented x3 Musculoskeletal: no erythema, no cyanosis Psychiatric: mood/affect appropriate, cooperative - Lab 01/07/17 06:00 01/06/17 04:25 Most recent lab results ABG pH 7.375 (7.35-7.45) 01/02/17 12:00 ABG pCO2 37.7 MM HG (35-48) 01/02/17 12:00 ABG pO2 100.0 MM HG (80-95) H 01/02/17 12:00 ABG HCO3 22.1 MMOL/L (20-26) 01/02/17 12:00 ABG O2 Saturation 97.5 % (95-100) 01/02/17 12:00 Calcium 7.2 MG/DL (8.5-10.1) L 01/06/17 04:25 Phosphorus 2.1 MG/DL (2.5-4.9) L 01/05/17 05:31 Magnesium 1.7 MG/DL (1.8-2.4) L 01/06/17 04:25 Assessment and Plan (1) KEILA (acute kidney injury) Problem details: Due to presumed JYOTI, initially returned to baseline. Continue levaquin 250mg po daily x 3 days. Status: Acute Current Visit: Yes (2) UTI (urinary tract infection) due to Enterococcus Status: Acute Current Visit: Yes
[2017-01-07] MEDS: ENOXAPARIN 40 MG/0.4 ML SYRINGE SUBCUT SCH (10:36)
[2017-01-07] MEDS: METOPROLOL SUCCINATE XL 50 MG TABLET PO SCH (10:36)
[2017-01-07] MEDS: amLODIPine 10 MG TABLET PO SCH (10:36)
[2017-01-07] MEDS: PANTOPRAZOLE 40 MG TABLET PO SCH (10:36)
--- NOTE | 2017-01-07 14:05 | Event Note ---
Postop day #6/7. Overall, the patient is improving. She is becoming more mobile and tolerating a full liquid diet without difficulty. Patient continues on Mefoxin and levaquin for UTI (enterococcus). Renal function stable with creatinine 1.3. Physical exam: Vital signs: low grade temp yesterday; stable this morning Lungs: Clear to auscultation bilaterally Heart: Regular rate and rhythm Abdomen: Abdominal dressings removed. No excessive purulence. Tissues appear viable. Wound irrigated and repacked. Extremities: Calves soft and nontender. No pedal edema appreciated. Diagnostics: Labs reviewed this am. Leukocytosis persistent. Assessment and plan: 1. Incarcerated visceral hernia s/p laparotomy with open wound secondary to infection - will allow to heal by secondary intention. Continue Mefoxin and await cultures; abdominal binder. Advance to soft diet and monitor bowel function. Repeat dressing change in a.m. No further surgical debridement indicated at this time. Path without malignancy. 2. Status post hysterectomy with left salpingoophorectomy. Path without malignancy. 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 3. UTI: Enterococcus on culture - levaquin renally dosed. 4. Acute renal failure: Likely some chronic kidney disease at baseline. Creatinine has stabilized at this point. Continue to monitor renal function and renally dose medications. Appreciate nephrology input. 5. H/o HTN - stable. Follow per hospitalist team. 6. Blood loss anemia. H&H is stable at this time. 7. DVT ppx: continue lovenox 8. GI ppx: continue PPI 9. Dispo: anticipate d/c in next 24-48 hrs. Will require HH/outpt services for wound care.
[2017-01-07] MEDS: LEVOFLOXACIN INJ 250 MG in PREMIX 1 EACH IV SCH (18:50)
[2017-01-08] MEDS: MORPHINE 2 MG/1 ML SYRINGE IV PRN (05:27)
[2017-01-08] MEDS: METOPROLOL TARTRATE 5 MG/5 ML VIAL IV SCH ×4 (05:27→23:09)
[2017-01-08 06:44] LABS: Albumin 1.3 G/DL (3.4-5.0); Calcium 7.1 MG/DL (8.5-10.1); Osmolality,Calculated 269.8 MOS/KG (273-304); Phosphorous 2.4 MG/DL (2.5-4.9); Potassium 3.8 MMOL/L (3.5-5.1)
[2017-01-08 06:51] LABS: Basophils % 0.1 % (0.0-0.8); Eosinophils # 0.2 10*3/uL (0.0-0.87); Eosinophils % 0.8 % (0.00-10.9); Hematocrit 28.2 VOL% (35.7-47.0); Immature Granulocytes % 6.4 %; Immature Granulocytes Absolute 1.45 #; Lymphocytes # 1.6 10*3/uL (1.4-4.0); Lymphocytes % 6.8 % (21.3-54.2); Mean Corpuscular HGB Conc 31.9 GM/DL (32-36); Mean Corpuscular Hemoglobin 23 PG (27-34); Mean Corpuscular Volume 71.6 FL (87-102); Mean Platelet Volume 11.2 FL (9.6-12.0); Monocytes # 1.2 10*3/uL (0.11-0.8); Monocytes % 5.2 % (1.7-12.7); Neutrophils # 18.3 10*3/uL (1.4-7.4); Neutrophils % 80.7 % (38.7-73.9); Platelet Count 383 T/CUMM (130-400); Red Blood Count 3.94 MC/CUMM (3.8-5.5); Red Cell Distribution Width 24.2 % (9.3-17.3); White Blood Count 22.7 T/CUMM (4-12)
--- NOTE | 2017-01-08 07:00 | Nephrology Progress Note ---
Nephrology - PN: Subj Interval history: WBC still 22k this am. No fever overnight. Renal function ordered and pending. BPs have been running high 150s/high 90s. Questioned regarding allergy to olmisartan. She states she had hives for 3 months while on Tribenzor, went away when stopped, but she has been on irbesartan at home 300mg daily without problems at all. So if allergic to olmisartan (I doubt) it is not a class effect. Exam (PN)-Nephrology - Vital Signs Vital signs: Period Temp Pulse Resp BP Sys/Au Pulse Ox Last 24 Hr 97.6 F-99.6 F 83-106 17-20 132-167/82-112 93-100 - General Appearance General appearance: well-developed, obese EENT: ATNC, PERRL, mucous membranes dry, hearing intact, vision intact Neck: no JVD, no thyromegaly Respiratory: no kyphosis, clear Cardiology: no murmurs, no rub Gastrointestinal: normoactive bowel sounds, no tenderness Integumentary: no rash, warm and dry Neurologic: no focal deficit, no asterixis, alert and oriented x3 Musculoskeletal: no deformities, no erythema Psychiatric: mood/affect appropriate, cooperative - Lab 01/08/17 04:40 01/06/17 04:25 Most recent lab results ABG pH 7.375 (7.35-7.45) 01/02/17 12:00 ABG pCO2 37.7 MM HG (35-48) 01/02/17 12:00 ABG pO2 100.0 MM HG (80-95) H 01/02/17 12:00 ABG HCO3 22.1 MMOL/L (20-26) 01/02/17 12:00 ABG O2 Saturation 97.5 % (95-100) 01/02/17 12:00 Calcium 7.2 MG/DL (8.5-10.1) L 01/06/17 04:25 Phosphorus 2.1 MG/DL (2.5-4.9) L 01/05/17 05:31 Magnesium 1.7 MG/DL (1.8-2.4) L 01/06/17 04:25 Assessment and Plan (1) KEILA (acute kidney injury) Problem details: Due to presumed JOYTI, initially returned to baseline. Continue levaquin 250mg po daily. Consider repeat UCx to assess for cure. Status: Acute Current Visit: Yes (2) UTI (urinary tract infection) due to Enterococcus Status: Acute Current Visit: Yes
[2017-01-08 07:11] LABS: Band Neutrophils 3 % (0-10); Eosinophils 1 % (0-10); Lymphocytes 5 % (20-55); Myelocytes 2 %; Segmented Neutrophils 84 % (50-85); Total Cells Counted 100
[2017-01-08 07:12] LABS: Hypochromasia 1+; Microcytosis 1+; Ovalocytes Slight; Platelet Estimate Adequate
--- NOTE | 2017-01-08 07:37 | XRay Report ---
XR chest 2V Indication: Surgery, atelectasis Comparison: 04 January 2017 Findings: The heart and mediastinum are normal in size and configuration. The pulmonary vascularity is normal in caliber. Trace of bilateral lower lung density is present with poor inspiratory effort. No other lung infiltrates, effusions, pneumothorax or other abnormality is demonstrated. Impression: Trace bilateral lower lung density may indicate atelectasis. PROCEDURE INTERPRETED AT [facility] DEPARTMENT OF RADIOLOGY Final Report Signed by: Dr. Anastacio Mckeon
--- NOTE | 2017-01-08 08:02 | Pulmonology Progress Note ---
Pulmonary - PN: Subj Interval history: This 46-year-old white female went back to surgery yesterday. 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 She had a hysterectomy. Her abdomen has been closed. She is alert and calm. She is still tachycardic with a rate of around 120. We will give her some IV metoprolol. Should be able to extubate this morning. 01/03/2017 patient doing well with low flow nasal oxygen. Heart rate is down to around 100. Blood pressure better controlled. Patient has obstructive sleep apnea and asking about her CPAP. Cannot really use that until we get her NG tube out. Defer to surgery on when that will be. 01/06/2017 patient doing well with low flow nasal oxygen. She is eating and drinking now. Pathology has come back benign. His urinary tract infection. She is on Mefoxin. Check urine cultures as it is gram-positive. 01/07/2017 patient is afebrile. Starting to take soft diet. No dyspnea. Oxygen saturations were good. Will recheck chest x-ray in the morning. 01/08/2017 patient remains afebrile. Able to eat yesterday. No vomiting. Tolerating room air. Need to check room air oxygen saturation. Chest x-ray shows relatively small lungs with some bibasilar atelectasis but no change from before. This is probably sympathetic to what is going on her abdomen. Exam (Progress Note) - Constitutional Vitals: Period Temp Pulse Resp BP Sys/Au Pulse Ox Last 24 Hr 97.6 F-99.6 F 87-106 17-20 138-167/82-112 97-100 Exam: Patient is alert and responsive on room air. Pupils react to light. She has exophoria. Neck supple. Chest sounds clear. Heart rate around 80 with no murmurs. Abdomen is now closed bandage mildly tender. Decreased bowel sounds. Extremities no clubbing cyanosis edema. Calves nontender. Results - Labs CBC & BMP: 01/08/17 04:40 01/08/17 04:40 Lab Results: I have reviewed the past 24 hour labs - Diagnostic Findings Procedure: Chest x-ray: image reviewed by me (Relatively small lungs. Mild basilar atelectasis on both sides. No acute infiltrate otherwise. Little change from film 4 days earlier.) Assessment and Plan (1) Abdominal mass Status: Acute Assessment and plan: This is going to require a CT scan and then most likely additional surgery. Concern over whether this may be a neuroendocrine tremor. 01/02/2017 she was taken back to surgery yesterday with multiple smooth muscle tumors removed. Also had hysterectomy and left oophorectomy. Had wound closed. Await final pathology reports. 01/03/2017 status post resection of multiple abdominal tumors. Await final pathology. 01/06/2017 apparently the largest mass was a fibroid tumor of the uterus. Pathology reports all benign. 01/08/2017 status post laparotomy with removal of fibroid tumor, hysterectomy, multiple small tumors that were all benign. Now eating and able to pass stool. Current Visit: Yes (2) Postoperative mechanical ventilation Status: Acute Assessment and plan: ABGs and chest x-ray look good. Should be able to wean her this morning. 01/02/2017 ABGs look good. Other than her tachycardia she should be ready for extubation. We will give her some IV metoprolol. She normally takes metoprolol by mouth. Need to get her heart rate down for weaning. 01/03/2017 we were able to get her extubated yesterday. She looks comfortable on nasal oxygen today. Could be moved to the floor from a pulmonary standpoint. 01/06/2017 doing well on nasal oxygen. 01/07/2017 respiratory failure has resolved Current Visit: Yes (3) Uncontrolled hypertension Status: Acute Assessment and plan: Presently on Cardene infusion. Hospitalist following. Blood pressure looks good. 01/02/2017 blood pressure is controlled. 01/06/2017 blood pressure is well controlled now. 01/07/2017 blood pressure and pulse well controlled with current medications. 01/08/2017 blood pressure well controlled. Current Visit: Yes (4) Incarcerated ventral hernia Status: Acute Assessment and plan: She has had laparotomy for the hernia, but abdominal mass was encountered so she was not closed. 01/02/2017 status post repair. It has been closed 01/06/2017 this has been repaired surgically. 01/07/2017 apparently has an infection at the wound site. Currently on antibiotics. Surgery following. 01/08/2017 status post repair. Current Visit: Yes (5) UTI (urinary tract infection) due to Enterococcus Status: Acute Assessment and plan: This is widely sensitive. Should be covered with current antibiotics. 01/08/2017 on Levaquin for enterococcal UTI. Current Visit: Yes
--- NOTE | 2017-01-08 08:27 | Hospitalist Progress Note ---
Assessment and Plan (1) Incarcerated ventral hernia Status: Acute Assessment and plan: management plan per surgery. Pain management. Current Visit: Yes (2) UTI (urinary tract infection) due to Enterococcus Status: Acute Assessment and plan: Continue renal dosed IV antibiotics. Repeat urine culture today. Current Visit: Yes (3) Hypertension Status: Acute Assessment and plan: BP 147/90 today. Stable. Continue current treatment plan. Current Visit: Yes (4) KEILA (acute kidney injury) Problem details: Due to presumed JYOTI, initially returned to baseline. Continue levaquin 250mg po daily. Consider repeat UCx to assess for cure. Status: Acute Assessment and plan: Cr 1.2 today. Improving slightly today. Current Visit: Yes (5) Blood loss anemia Status: Acute Assessment and plan: Monitor H/H, transfuse if needed. Current Visit: Yes Hospitalist: Subjective Interval history: No overnight acute event. Afebrile. On IV antibiotics for UTI (enterrococcus). Has pain at incision site. BP 147/90 this am. Pt is a 46yo AAF with incarcerated visceral hernia s/p laparotomy; Status post hysterectomy with left salpingoophorectomy; UTI: Enterococcus on culture - levaquin renally dosed; Acute renal failure: Likely some chronic kidney disease at baseline. Continue to monitor renal function and renally dose medications. Appreciate nephrology inputs; HTN - stable. Exam - Constitutional Vitals: Period Temp Pulse Resp BP Sys/Au Pulse Ox Last 24 Hr 97.6 F-99.6 F 87-106 17-20 138-167/82-112 97-100 Exam: Vital signs: Lying in bed supine. AAox3 Lungs: Clear to auscultation bilaterally Heart: Regular rate and rhythm Abdomen: Abdominal wound covered by dressing. Tenderness at wound site. Extremities: Calves soft and nontender. No pedal edema appreciated. Neuro: AAox3. Results - Labs CBC & BMP: 01/08/17 04:40 01/08/17 04:40 Quality Measures - VTE Contraindication to Pharmacological VTE Prophylaxis: High Risk of Bleeding
[2017-01-08] MEDS ORDERED: ALPRAZolam 0.5 MG TABLET PO ONE (08:53)
[2017-01-08] MEDS: ENOXAPARIN 40 MG/0.4 ML SYRINGE SUBCUT SCH (10:34)
[2017-01-08] MEDS: CIPROFLOXACIN INJ 400 MG in PREMIX 1 EACH IV SCH ×2 (10:34→20:33)
[2017-01-08] MEDS: amLODIPine 10 MG TABLET PO SCH (10:34)
[2017-01-08] MEDS: METOPROLOL SUCCINATE XL 50 MG TABLET PO SCH (10:34)
[2017-01-08 11:12] LABS: Apearance,Urine CLOUDY (Clear); Bilirubin,Urine Negative (Negative); Blood, Urine Moderate mg/dL (Negative); Glucose,Urine (UA) Negative (Negative); Ketones,Urine Negative (Negative); Mucus,Urine Occasional /LPF (Occasional); Nitrite,Urine Negative (Negative); Protein,Urine 30 MG/DL; RBC,Urine 20 /HPF (0-4); Squamous Epithelial Cell,Urine Few /HPF (0-10); Urine Color Yellow (Yellow); Urine Specific Gravity 1.014 (1.001-1.035); Urine Urobilinogen < 2.0 EU/DL (0.2-1.0); WBC,Urine 71 /HPF (0-6)
[2017-01-08] MEDS: metroNIDAZOLE INJ 500 MG in PREMIX 1 EACH IV SCH ×3 (11:46→22:41)
--- NOTE | 2017-01-08 12:22 | Event Note ---
Afebrile. Vital signs stable with some hypertension being managed by the hospitalist service. She is having normal bowel movements. Overall she's feeling better. She's been sitting up and ambulating. Her wound remains clean. Abdomen is appropriately tender with no recurrence appreciated. White blood cell count still elevated. We'll recheck urine cultures. We'll send blood for culture. I'll check a CT scan of her abdomen and pelvis to rule out an intra-abdominal abscess. We are going to change her antibiotics to Cipro and Flagyl. This should cover the previous UTI as well as any intra-abdominal source and her wound. Recheck labs tomorrow. Other than her leukocytosis she is approaching discharge.
--- NOTE | 2017-01-08 14:32 | CT Report ---
Referring physician: Jay Galvez EXAM: CT abdomen and pelvis without contrast DATE: 01/08/2017 COMPARISON: 01/01/2017 REASON: Leukocytosis, evaluate for abscess TECHNIQUE: Axial images of the abdomen and pelvis were obtained without the use of IV contrast. Oral contrast given. Coronal and sagittal reformatted images were also provided. Total DLP is 954.80 mGy*cm. FINDINGS: Larger small bilateral pleural effusions with progressive parenchymal findings at the visualized lung bases. The liver is normal in size with no masses or dilated ducts. The gallbladder is more contracted with the while appearing more thickened. The spleen, pancreas, adrenal glands, and kidneys are stable in appearance. The abdominal aorta is normal in size with no definite adjacent adenopathy. Larger hiatal hernia with interval removal of the nasogastric tube. Progressive fluid/secretions in the stomach with progressive thickening of the wall, especially the gastric antrum. No significant dilatation of small bowel with the oral contrast reaching the colon. The appendix is not identified with no evidence of diverticulitis or free air. Interval hysterectomy with removal of the very large abdominal mass. Loculated fluid collections noted throughout the abdomen and pelvis with the largest finding measuring 135 x 128 x 96 mm in the pelvis. No significant air within these findings. Decompressed urinary bladder. No acute osseous findings. Diffuse fluid in the soft tissues. Open midline wound with progressive density in the right of midline soft tissues to the right of midline measuring 42 x 38 x 30 mm with adjacent air. IMPRESSION: Larger small pleural effusions with progressive atelectasis/infiltration. The gallbladder is more contracted with gallbladder wall thickening. Larger hiatal hernia with progressive bowel wall thickening. Interval hysterectomy and removal of the very large abdominal mass. Multifocal fluid collections are noted throughout the abdomen and pelvis which can be seen with possible developing abscesses rather than simple ascites. Progressive anasarca. Open wound with what may be packing in the edge of the wound as discussed with Dr. Galvez at 2:30 PM on 01/08/2017. The CT exam was performed using one or more of the following dose reduction techniques: Automated exposure control and adjustment of the mA and/or kV according to patient size. PROCEDURE INTERPRETED AT [facility] DEPARTMENT OF RADIOLOGY Final Report Signed by: Dr. Adriana Srinivasan
[2017-01-08] MEDS: PANTOPRAZOLE 40 MG TABLET PO SCH (15:13)
[2017-01-08] MEDS: oxyCODONE/ACETAMINOPHEN 5-325 MG TABLET PO PRN ×2 (15:35→20:33)
[2017-01-09] MEDS: oxyCODONE/ACETAMINOPHEN 5-325 MG TABLET PO PRN ×4 (02:19→23:24)
[2017-01-09 04:12] LABS: Basophils % 0.2 % (0.0-0.8); Eosinophils # 0.2 10*3/uL (0.0-0.87); Eosinophils % 0.7 % (0.00-10.9); Hematocrit 27.9 VOL% (35.7-47.0); Hemoglobin 8.8 GM/DL (12.0-16.0); Immature Granulocytes % 5.9 %; Immature Granulocytes Absolute 1.39 #; Lymphocytes # 1.6 10*3/uL (1.4-4.0); Lymphocytes % 6.7 % (21.3-54.2); Mean Corpuscular HGB Conc 31.5 GM/DL (32-36); Mean Corpuscular Hemoglobin 22 PG (27-34); Mean Corpuscular Volume 70.6 FL (87-102); Mean Platelet Volume 10.3 FL (9.6-12.0); Monocytes # 1.3 10*3/uL (0.11-0.8); Monocytes % 5.3 % (1.7-12.7); NRBC # 0.02 10*3/uL; Neutrophils # 19.3 10*3/uL (1.4-7.4); Neutrophils % 81.2 % (38.7-73.9); Platelet Count 390 T/CUMM (130-400); Red Blood Count 3.95 MC/CUMM (3.8-5.5); Red Cell Distribution Width 24.5 % (9.3-17.3); White Blood Count 23.8 T/CUMM (4-12)
[2017-01-09 04:43] LABS: Albumin 1.3 G/DL (3.4-5.0); Calcium 7.1 MG/DL (8.5-10.1); Phosphorous 2.7 MG/DL (2.5-4.9); Potassium 3.7 MMOL/L (3.5-5.1)
[2017-01-09 05:48] LABS: Total Cells Counted 100
[2017-01-09 05:50] LABS: Anisocytosis 1+; Band Neutrophils 3 % (0-10); Lymphocytes 3 % (20-55); Metamyelocytes 1 %; Myelocytes 1 %; Segmented Neutrophils 89 % (50-85)
[2017-01-09 05:51] LABS: Hypochromasia 1+; Polychromasia 1+; Target Cells 1+
[2017-01-09 05:52] LABS: Schistocytes Few
[2017-01-09 06:06] LABS: Calcium 7.3 MG/DL (8.5-10.1); Potassium 3.7 MMOL/L (3.5-5.1)
[2017-01-09] MEDS: metroNIDAZOLE INJ 500 MG in PREMIX 1 EACH IV SCH ×3 (06:06→23:25)
[2017-01-09] MEDS: METOPROLOL TARTRATE 5 MG/5 ML VIAL IV SCH ×4 (06:07→23:31)
--- NOTE | 2017-01-09 08:41 | Hospitalist Progress Note ---
Assessment and Plan - Time spent with patient Time spent with patient: Greater than 30 minutes (1) Abdominal fluid collection Status: Acute Assessment and plan: Suspecting abscess, IR procedure to drain fluid today. Continue IV levaquin and Flagyl. Monitor CBC. Explained to pt that she prob wont be able to go home this weekend due to her current clinical status. Current Visit: Yes (2) Incarcerated ventral hernia Status: Acute Assessment and plan: management plan per surgery. Pain management. Current Visit: Yes (3) UTI (urinary tract infection) due to Enterococcus Status: Acute Assessment and plan: Continue renal dosed IV antibiotics. Repeat urine culture today. Current Visit: Yes (4) Hypertension Status: Acute Assessment and plan: BP 147/90 today. Stable. Continue current treatment plan. Current Visit: Yes (5) KEILA (acute kidney injury) Status: Acute Assessment and plan: Cr improved to 1.0 today. Continue IVF. Current Visit: Yes (6) Blood loss anemia Status: Acute Assessment and plan: Monitor H/H, transfuse if needed. Current Visit: Yes Hospitalist: Subjective Interval history: 01/09/17: Pt has abd pain. Deny fever, SOB, wheezing, cough, chest pain, diarrhea , or dysuria. CT abd last afternoon showed pleural effusion with progressive atelectasis/infiltration, gallbladder wall thickening and large hiatal hernia, and multiple fluid collections throughout abd/pelvis. GS f/u. IR procedure to drain intraabdominal fluid/abscess today. Cr 1.0 today. On IV levaquin and Flagyl. 01/08/17: No overnight acute event. Afebrile. On IV antibiotics for UTI ( enterrococcus). Has pain at incision site. BP 147/90 this am. Interval history: Pt is a 46yo AAF with incarcerated visceral hernia s/p laparotomy; Status post hysterectomy with left salpingoophorectomy; UTI: Enterococcus on culture - levaquin renally dosed; Acute renal failure: Likely some chronic kidney disease at baseline. Continue to monitor renal function and renally dose medications. Appreciate nephrology inputs; HTN - stable. Exam - Constitutional Vitals: Period Temp Pulse Resp BP Sys/Au Pulse Ox Last 24 Hr 97.8 F-100.2 F 87-105 17-22 138-163/89-100 96-98 Exam: Vital signs: Lying in bed supine. AAox3, NAD. Lungs: Clear to auscultation bilaterally Heart: Regular rate and rhythm Abdomen: Abdominal wound covered by dressing. Tenderness at wound site. Extremities: Calves soft and nontender. No pedal edema appreciated. Neuro: AAox3. Results - Labs CBC & BMP: 01/09/17 03:09 01/09/17 03:09 Quality Measures - VTE Contraindication to Pharmacological VTE Prophylaxis: High Risk of Bleeding Specialty Discharge - Follow Up or Referrals
--- NOTE | 2017-01-09 08:56 | Pulmonology Progress Note ---
Pulmonary - PN: Subj Interval history: This 46-year-old white female went back to surgery yesterday. 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 She had a hysterectomy. Her abdomen has been closed. She is alert and calm. She is still tachycardic with a rate of around 120. We will give her some IV metoprolol. Should be able to extubate this morning. 01/03/2017 patient doing well with low flow nasal oxygen. Heart rate is down to around 100. Blood pressure better controlled. Patient has obstructive sleep apnea and asking about her CPAP. Cannot really use that until we get her NG tube out. Defer to surgery on when that will be. 01/06/2017 patient doing well with low flow nasal oxygen. She is eating and drinking now. Pathology has come back benign. His urinary tract infection. She is on Mefoxin. Check urine cultures as it is gram-positive. 01/07/2017 patient is afebrile. Starting to take soft diet. No dyspnea. Oxygen saturations were good. Will recheck chest x-ray in the morning. 01/08/2017 patient remains afebrile. Able to eat yesterday. No vomiting. Tolerating room air. Need to check room air oxygen saturation. Chest x-ray shows relatively small lungs with some bibasilar atelectasis but no change from before. This is probably sympathetic to what is going on her abdomen. 01/09/2017 she remains afebrile. Loculated fluid in the abdomen and pelvis are noted. She is to have drainage of 1 of these today. Concern about elevated white count. The pleural effusions are still too small to consider tapping. I think they are caused by/sympathetic to the ongoing abdominal processes. Exam (Progress Note) - Constitutional Vitals: Period Temp Pulse Resp BP Sys/Au Pulse Ox Last 24 Hr 97.8 F-100.2 F 86-105 17-22 138-163/86-100 96-98 Exam: Patient is alert and responsive on room air. Pupils react to light. She has exophoria. Neck supple. Chest sounds clear. Heart rate around 80 with no murmurs. Abdomen is now closed bandage mildly tender. Decreased bowel sounds. Extremities no clubbing cyanosis edema. Calves nontender. Results - Labs CBC & BMP: 01/09/17 03:09 01/09/17 03:09 Lab Results: I have reviewed the past 24 hour labs Assessment and Plan (1) Abdominal mass Status: Acute Assessment and plan: This is going to require a CT scan and then most likely additional surgery. Concern over whether this may be a neuroendocrine tremor. 01/02/2017 she was taken back to surgery yesterday with multiple smooth muscle tumors removed. Also had hysterectomy and left oophorectomy. Had wound closed. Await final pathology reports. 01/03/2017 status post resection of multiple abdominal tumors. Await final pathology. 01/06/2017 apparently the largest mass was a fibroid tumor of the uterus. Pathology reports all benign. 01/08/2017 status post laparotomy with removal of fibroid tumor, hysterectomy, multiple small tumors that were all benign. Now eating and able to pass stool. 01/09/2017 post laparotomy with removal of tumor. Persistent elevated white count. Abdominal fluid collections noted. Current Visit: Yes (2) Postoperative mechanical ventilation Status: Acute Assessment and plan: ABGs and chest x-ray look good. Should be able to wean her this morning. 01/02/2017 ABGs look good. Other than her tachycardia she should be ready for extubation. We will give her some IV metoprolol. She normally takes metoprolol by mouth. Need to get her heart rate down for weaning. 01/03/2017 we were able to get her extubated yesterday. She looks comfortable on nasal oxygen today. Could be moved to the floor from a pulmonary standpoint. 01/06/2017 doing well on nasal oxygen. 01/07/2017 respiratory failure has resolved 01/09/2017 doing well on room air. Respiratory failure has resolved despite some basilar atelectasis and small pleural effusions. Current Visit: Yes (3) Uncontrolled hypertension Status: Acute Assessment and plan: Presently on Cardene infusion. Hospitalist following. Blood pressure looks good. 01/02/2017 blood pressure is controlled. 01/06/2017 blood pressure is well controlled now. 01/07/2017 blood pressure and pulse well controlled with current medications. 01/08/2017 blood pressure well controlled. 01/09/2017 blood pressure looks good. Current Visit: Yes (4) Incarcerated ventral hernia Status: Acute Assessment and plan: She has had laparotomy for the hernia, but abdominal mass was encountered so she was not closed. 01/02/2017 status post repair. It has been closed 01/06/2017 this has been repaired surgically. 01/07/2017 apparently has an infection at the wound site. Currently on antibiotics. Surgery following. 01/08/2017 status post repair. Current Visit: Yes (5) UTI (urinary tract infection) due to Enterococcus Status: Acute Assessment and plan: This is widely sensitive. Should be covered with current antibiotics. 01/08/2017 on Levaquin for enterococcal UTI. 01/09/2017 continuing antibiotics. Current Visit: Yes Specialty Discharge - Follow Up or Referrals
[2017-01-09] MEDS: METOPROLOL SUCCINATE XL 50 MG TABLET PO SCH (09:21)
[2017-01-09] MEDS: amLODIPine 10 MG TABLET PO SCH (09:21)
[2017-01-09] MEDS: CIPROFLOXACIN INJ 400 MG in PREMIX 1 EACH IV SCH ×2 (10:05→21:22)
[2017-01-09] MEDS: PANTOPRAZOLE 40 MG TABLET PO SCH (10:06)
[2017-01-09] MEDS: ENOXAPARIN 40 MG/0.4 ML SYRINGE SUBCUT SCH (11:09)
[2017-01-09] MEDS: MORPHINE 2 MG/1 ML SYRINGE IV PRN (12:21)
--- NOTE | 2017-01-09 13:36 | Post Interventional Procedure ---
Pre-op diagnosis: Abnormal postsurgical fluid collection. Possible early abscess Post-op diagnosis: same Procedure: Ultrasound-guided placement of abscess drainage catheter Radiologist: Hetal Zuñiga Marking Clerk: Omid Ovalle Anesthesia: local Specimens: other (fluid sample sent to lab) Complications: none Condition: stable Description/Findings: A formal timeout was performed. The right mid abdomen was prepped and draped in sterile fashion. A large complex fluid collection in the anterior mid right abdomen with moderate internal debris was noted during real-time sonography. Under sonographic guidance, an 8 [place] pigtail catheter was advanced into the fluid pocket using trocar technique. A captured sonographic image documents needle position. The needle was removed. Initially through the catheter, we obtained a total of 20 cc of straw-colored thin fluid. Because of the large fluid volume present, the 8 [place] percutaneous pigtail drainage catheter was left in place and affixed to the skin. Small fluid sample was sent to the laboratory for Gram stain and culture. No complications were encountered. There is no significant blood loss. Assessment and Plan - Time spent with patient Time spent with patient: Less than 30 minutes
--- NOTE | 2017-01-09 13:40 | Interventional Radiology Rpt ---
History: Abnormal postsurgical fluid collection. Possible early abscess Date: 01/09/2017 Study: Ultrasound-guided placement of abscess drainage catheter Comparison exam: CT abdomen and pelvis 01/08/2017 Description: A formal timeout was performed. The right mid abdomen was prepped and draped in sterile fashion. A large complex fluid collection in the anterior mid right abdomen with moderate internal debris was noted during real-time sonography. Under sonographic guidance, an 8 [place] pigtail catheter was advanced into the fluid pocket using trocar technique. A captured sonographic image documents needle position. The needle was removed. Initially through the catheter, we obtained a total of 20 cc of straw-colored thin fluid. Because of the large fluid volume present, the 8 [place] percutaneous pigtail drainage catheter was left in place and affixed to the skin. Small fluid sample was sent to the laboratory for Gram stain and culture. No complications were encountered. There is no significant blood loss. Impression: Ultrasound-guided placement of 8 [place] pigtail drainage catheter was performed PROCEDURE INTERPRETED AT [facility] DEPARTMENT OF RADIOLOGY Final Report Signed by: Dr. Hetal Zuñiga
[2017-01-09 19:42] LABS: Glucose,Peritoneal Fluid 6 MG/DL; LDH,Peritoneal Fluid 1589 U/L; Total Protein,Peritoneal Fluid 1.2 G/DL
[2017-01-10 02:21] LABS: Basophils % 0.2 % (0.0-0.8); Eosinophils # 0.2 10*3/uL (0.0-0.87); Eosinophils % 0.9 % (0.00-10.9); Hematocrit 28.9 VOL% (35.7-47.0); Hemoglobin 9.3 GM/DL (12.0-16.0); Immature Granulocytes % 4.9 %; Immature Granulocytes Absolute 0.98 #; Lymphocytes # 1.6 10*3/uL (1.4-4.0); Mean Corpuscular HGB Conc 32.2 GM/DL (32-36); Mean Corpuscular Hemoglobin 22 PG (27-34); Mean Corpuscular Volume 69.3 FL (87-102); Mean Platelet Volume 10.4 FL (9.6-12.0); Monocytes # 1.1 10*3/uL (0.11-0.8); Monocytes % 5.4 % (1.7-12.7); Neutrophils % 80.6 % (38.7-73.9); Platelet Count 426 T/CUMM (130-400); Red Blood Count 4.17 MC/CUMM (3.8-5.5); Red Cell Distribution Width 25.2 % (9.3-17.3); White Blood Count 19.8 T/CUMM (4-12)
[2017-01-10 02:45] LABS: Albumin 1.5 G/DL (3.4-5.0); Calcium 7.2 MG/DL (8.5-10.1); Osmolality,Calculated 270.8 MOS/KG (273-304); Potassium 3.7 MMOL/L (3.5-5.1)
[2017-01-10 04:03] LABS: Band Neutrophils 5 % (0-10); Eosinophils 1 % (0-10); Lymphocytes 9 % (20-55); Metamyelocytes 1 %; Segmented Neutrophils 82 % (50-85); Total Cells Counted 100
[2017-01-10 04:04] LABS: Platelet Estimate Increased; Target Cells Few
[2017-01-10] MEDS: oxyCODONE/ACETAMINOPHEN 5-325 MG TABLET PO PRN ×3 (06:39→19:17)
[2017-01-10] MEDS: METOPROLOL TARTRATE 5 MG/5 ML VIAL IV SCH ×4 (06:39→23:06)
[2017-01-10] MEDS: metroNIDAZOLE INJ 500 MG in PREMIX 1 EACH IV SCH ×3 (06:40→23:09)
--- NOTE | 2017-01-10 08:35 | Event Note ---
Status post small bowel resection, repair of incarcerated hernia, resection of a large abdominal mass and hysterectomy. Patient has been doing well and is been kept for her leukocytosis. Her antibiotics of been changed. She had a wound infection in the wound appears clean. She is tolerating a diet ambulating and her pain is well controlled. She is having bowel movements. Yesterday she underwent percutaneous drain of the intra-abdominal fluid which appears serous in nature. Cultures pending but I suspect it will grow nothing or the same as her wound. She is been ready to go home. She has home health set up for packing changes. Her white blood cell count has improved today. Her abdomen is soft and appropriately tender. Plan: We'll continue the percutaneous drain. If her white blood cell count improves tomorrow she can go home. Will plan to discharge her home on 10 days of her current antibiotics as long as the susceptibilities are no different on her percutaneous drain collection. I'll see her in a week to potentially remove the percutaneous drain.
--- NOTE | 2017-01-10 08:44 | Pulmonology Progress Note ---
Pulmonary - PN: Subj Interval history: This 46-year-old white female went back to surgery yesterday. 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 She had a hysterectomy. Her abdomen has been closed. She is alert and calm. She is still tachycardic with a rate of around 120. We will give her some IV metoprolol. Should be able to extubate this morning. 01/03/2017 patient doing well with low flow nasal oxygen. Heart rate is down to around 100. Blood pressure better controlled. Patient has obstructive sleep apnea and asking about her CPAP. Cannot really use that until we get her NG tube out. Defer to surgery on when that will be. 01/06/2017 patient doing well with low flow nasal oxygen. She is eating and drinking now. Pathology has come back benign. His urinary tract infection. She is on Mefoxin. Check urine cultures as it is gram-positive. 01/07/2017 patient is afebrile. Starting to take soft diet. No dyspnea. Oxygen saturations were good. Will recheck chest x-ray in the morning. 01/08/2017 patient remains afebrile. Able to eat yesterday. No vomiting. Tolerating room air. Need to check room air oxygen saturation. Chest x-ray shows relatively small lungs with some bibasilar atelectasis but no change from before. This is probably sympathetic to what is going on her abdomen. 01/09/2017 she remains afebrile. Loculated fluid in the abdomen and pelvis are noted. She is to have drainage of 1 of these today. Concern about elevated white count. The pleural effusions are still too small to consider tapping. I think they are caused by/sympathetic to the ongoing abdominal processes. 01/10/2017 patient remains afebrile. White blood count down to 19,000. She has had a good bit of drainage from the abdominal drain. Fluid does not look purulent. Cultures pending. She has grown out enterococcus and Enterobacter earlier. She is stable from a pulmonary standpoint. The small pleural effusions that she has are sympathetic to the abdominal process. I will be out this weekend. Dr. Altamirano is available if needed. Exam (Progress Note) - Constitutional Vitals: Period Temp Pulse Resp BP Sys/Au Pulse Ox Last 24 Hr 97.2 F-98.5 F 84-97 16-20 128-175/80-114 92-98 Exam: Patient is alert and responsive on room air. Pupils react to light. She has exophoria. Neck supple. Chest sounds clear. Heart rate around 80 with no murmurs. Abdomen is now closed bandage mildly tender. Decreased bowel sounds. Extremities no clubbing cyanosis edema. Calves nontender. Little change from yesterday. Results - Labs CBC & BMP: 01/10/17 01:20 01/10/17 01:20 Lab Results: I have reviewed the past 24 hour labs Assessment and Plan (1) Abdominal mass Status: Acute Assessment and plan: This is going to require a CT scan and then most likely additional surgery. Concern over whether this may be a neuroendocrine tremor. 01/02/2017 she was taken back to surgery yesterday with multiple smooth muscle tumors removed. Also had hysterectomy and left oophorectomy. Had wound closed. Await final pathology reports. 01/03/2017 status post resection of multiple abdominal tumors. Await final pathology. 01/06/2017 apparently the largest mass was a fibroid tumor of the uterus. Pathology reports all benign. 01/08/2017 status post laparotomy with removal of fibroid tumor, hysterectomy, multiple small tumors that were all benign. Now eating and able to pass stool. 01/09/2017 post laparotomy with removal of tumor. Persistent elevated white count. Abdominal fluid collections noted. 01/10/2017 post laparotomy with removal of fibroid tumor and multiple other smaller tumors. All are benign. Current Visit: Yes (2) Postoperative mechanical ventilation Status: Resolved Assessment and plan: ABGs and chest x-ray look good. Should be able to wean her this morning. 01/02/2017 ABGs look good. Other than her tachycardia she should be ready for extubation. We will give her some IV metoprolol. She normally takes metoprolol by mouth. Need to get her heart rate down for weaning. 01/03/2017 we were able to get her extubated yesterday. She looks comfortable on nasal oxygen today. Could be moved to the floor from a pulmonary standpoint. 01/06/2017 doing well on nasal oxygen. 01/07/2017 respiratory failure has resolved 01/09/2017 doing well on room air. Respiratory failure has resolved despite some basilar atelectasis and small pleural effusions. 01/10/2017 no respiratory difficulties. Pleural effusions are small. Current Visit: Yes (3) Uncontrolled hypertension Status: Acute Assessment and plan: Presently on Cardene infusion. Hospitalist following. Blood pressure looks good. 01/02/2017 blood pressure is controlled. 01/06/2017 blood pressure is well controlled now. 01/07/2017 blood pressure and pulse well controlled with current medications. 01/08/2017 blood pressure well controlled. 01/09/2017 blood pressure looks good. 01/10/1970 blood pressure well controlled now. Current Visit: Yes (4) Incarcerated ventral hernia Status: Resolved Assessment and plan: She has had laparotomy for the hernia, but abdominal mass was encountered so she was not closed. 01/02/2017 status post repair. It has been closed 01/06/2017 this has been repaired surgically. 01/07/2017 apparently has an infection at the wound site. Currently on antibiotics. Surgery following. 01/08/2017 status post repair. Current Visit: Yes (5) UTI (urinary tract infection) due to Enterococcus Status: Acute Assessment and plan: This is widely sensitive. Should be covered with current antibiotics. 01/08/2017 on Levaquin for enterococcal UTI. 01/09/2017 continuing antibiotics. 01/10/17 continuing antibiotics. Levaquin covers the enterococcal UTI as well as Enterobacter in her wound culture. She has a second enterococcus in the wound culture that is not covered for it. We will see what the abdominal drain grows. Current Visit: Yes Specialty Discharge - Follow Up or Referrals
[2017-01-10] MEDS: METOPROLOL SUCCINATE XL 50 MG TABLET PO SCH (09:35)
[2017-01-10] MEDS: PANTOPRAZOLE 40 MG TABLET PO SCH (09:36)
[2017-01-10] MEDS: ENOXAPARIN 40 MG/0.4 ML SYRINGE SUBCUT SCH (09:36)
[2017-01-10] MEDS: amLODIPine 10 MG TABLET PO SCH (09:36)
[2017-01-10] MEDS: CIPROFLOXACIN INJ 400 MG in PREMIX 1 EACH IV SCH ×2 (10:50→20:29)
--- NOTE | 2017-01-10 14:31 | Hospitalist Progress Note ---
Assessment and Plan (1) KEILA (acute kidney injury) Status: Resolved Assessment and plan: Renal function normal at 6/0.8. Current Visit: Yes (2) Abdominal fluid collection Status: Acute Assessment and plan: Percutaneous drain of intraabdominal fluid on yesterday. C&S pending. Current Visit: Yes (3) Hypertension Status: Acute Assessment and plan: Blood pressures stable; will manage and adjust as needed. Current Visit: Yes Hospitalist: Subjective Interval history: Patient seen and evaluated. Percutaneous drain of intraabdominal fluid on yesterday; no cultures available yet. WBC trending down at 19.8,today. Possible discharge in AM. Will definitely need home IV ABT. Exam - Constitutional Vitals: Period Temp Pulse Resp BP Sys/Au Pulse Ox Last 24 Hr 97.2 F-98.5 F 84-97 16-20 128-155/80-95 92-98 General appearance: normal weight, no acute distress - Head Head exam: Present: normal inspection, normocephalic, atraumatic - Eye Eye exam: Present: EOMI. Absent: conjunctival injection, nystagmus Pupils: Present: IRON, normal accommodation - ENT ENT exam: Present: normal exam - Neck Neck exam: Present: normal inspection. Absent: lymphadenopathy, meningismus, tenderness, thyromegaly - Respiratory Respiratory exam: Present: clear to auscultation bilaterally. Absent: rales, rhonchi, stridor, wheezes - Cardiovascular Cardiovascular exam: Present: regular rate and rhythm. Absent: carotid bruit, diastolic murmur, gallop, JVD, rubs, systolic murmur - GI/Abdominal GI/Abdominal exam: Present: normal bowel sounds, soft. Absent: firm, guarding, mass, tenderness - Extremities Exam Extremities exam: Present: normal inspection, normal capillary refill, full ROM. Absent: edema - Back Exam Back exam: Present: normal inspection - Neurological Exam Neurological exam: Present: alert, oriented X3, normal gait, CN II-XII intact - Psychiatric Psychiatric exam: Present: normal affect, normal mood - Skin Skin exam: Present: normal color, warm, dry Results - Labs CBC & BMP: 01/10/17 01:20 01/10/17 01:20 Lab Results: I have reviewed the past 24 hour labs Quality Measures - VTE Contraindication to Pharmacological VTE Prophylaxis: High Risk of Bleeding Specialty Discharge - Follow Up or Referrals Follow up with: Jay Galvez MD [Physician] - 01/15/17 9:00 am
[2017-01-11] MEDS: oxyCODONE/ACETAMINOPHEN 5-325 MG TABLET PO PRN ×4 (00:25→20:55)
[2017-01-11 02:52] LABS: Basophils % 0.1 % (0.0-0.8); Eosinophils # 0.2 10*3/uL (0.0-0.87); Eosinophils % 0.8 % (0.00-10.9); Hematocrit 28.4 VOL% (35.7-47.0); Hemoglobin 8.9 GM/DL (12.0-16.0); Immature Granulocytes % 4.2 %; Immature Granulocytes Absolute 0.84 #; Lymphocytes # 1.8 10*3/uL (1.4-4.0); Lymphocytes % 8.9 % (21.3-54.2); Mean Corpuscular HGB Conc 31.3 GM/DL (32-36); Mean Corpuscular Hemoglobin 22 PG (27-34); Mean Corpuscular Volume 69.8 FL (87-102); Mean Platelet Volume 10.7 FL (9.6-12.0); Monocytes % 4.9 % (1.7-12.7); Neutrophils # 16.3 10*3/uL (1.4-7.4); Neutrophils % 81.1 % (38.7-73.9); Platelet Count 485 T/CUMM (130-400); Red Blood Count 4.07 MC/CUMM (3.8-5.5); Red Cell Distribution Width 25.3 % (9.3-17.3); White Blood Count 20.1 T/CUMM (4-12)
[2017-01-11 03:19] LABS: Alanine Aminotransferase < 6 U/L (13-56); Albumin 1.3 G/DL (3.4-5.0); Alkaline Phosphatase 75 U/L (45-117); Aspartate Amino Transferase 15 U/L (0-37); Blood Urea Nitrogen 5 MG/DL (7-18); Calcium 7.1 MG/DL (8.5-10.1); Glucose 128 MG/DL (74-106); Magnesium 1.4 MG/DL (1.8-2.4); Osmolality,Calculated 271.8 MOS/KG (273-304); Phosphorous 2.7 MG/DL (2.5-4.9); Potassium 3.7 MMOL/L (3.5-5.1); Sodium 137 MMOL/L (136-145); Total Protein 5.2 G/DL (6.4-8.3)
[2017-01-11 03:47] LABS: Anisocytosis 1+; Band Neutrophils 2 % (0-10); Eosinophils 1 % (0-10); Hypochromasia 2+; Lymphocytes 10 % (20-55); Microcytosis 1+; Platelet Estimate Increased; Segmented Neutrophils 82 % (50-85); Total Cells Counted 100
[2017-01-11] MEDS: METOPROLOL TARTRATE 5 MG/5 ML VIAL IV SCH ×3 (06:29→18:22)
[2017-01-11] MEDS: metroNIDAZOLE INJ 500 MG in PREMIX 1 EACH IV SCH (06:33)
[2017-01-11] MEDS: CIPROFLOXACIN INJ 400 MG in PREMIX 1 EACH IV SCH ×2 (09:35→20:56)
[2017-01-11] MEDS: PANTOPRAZOLE 40 MG TABLET PO SCH (09:43)
[2017-01-11] MEDS: amLODIPine 10 MG TABLET PO SCH (09:43)
[2017-01-11] MEDS: METOPROLOL SUCCINATE XL 50 MG TABLET PO SCH (09:43)
--- NOTE | 2017-01-11 12:08 | XRay Report ---
History: COPD. Postop surgery. Atelectasis Date: 01/11/2017 Study: Chest x-ray AP portable Comparison exam: January 08, 2017 The cardiac silhouette is upper normal in size. The mediastinal contours are stable. The pulmonary vasculature is not engorged. There is continued strandy bibasilar atelectasis, though this is slightly improved. There is no new or worsening pulmonary process. Continued mild bilateral pleural effusion without change. Osseous structures are unchanged. Impression: Continued but improving bibasilar atelectasis PROCEDURE INTERPRETED AT [facility] DEPARTMENT OF RADIOLOGY Final Report Signed by: Dr. Hetal Zuñiga
--- NOTE | 2017-01-11 12:15 | Event Note ---
General Surgery Progress Note Chief complaint This patient is a 46-year-old woman who underwent laparotomy with resection of abdominal tumors, hysterectomy, small bowel resection, ventral hernia repair with the last operation on 01/01/2017 Interval history The patient developed a wound infection in the lower half of her wound was opened up several days ago. She has a pigtail catheter that has a large amount of fluid output. Her urine culture that was done several days ago was negative to growth. She has multiple organisms that grew out of her wound. There are no organisms that have grown out of her drain yet. Her white blood cell count unfortunately went up to 20,000 and 19,000 yesterday. She is afebrile with normal vital signs and feels well. She is tolerating her diet. Physical exam The patient is afebrile with normal vital signs Chest is clear Heart is regular Abdomen is soft and appropriately tender. Pigtail catheter has serosanguineous fluid in it. Midline wound inferior portion is open and it has beefy red granulation tissue. There is a small amount of fascial separation at the wound bed but there is no evisceration. Labs White blood cell count is 20,000 today Imaging None new Assessment and plan The patient's culture report does not list metronidazole as a agent that one of the bacteria from the wound culture is sensitive to. I have switch the patient to Cipro and Unasyn based on the culture reports that were done on this wound earlier in the week. We will keep her another day and repeat her CBC tomorrow.
--- NOTE | 2017-01-11 12:25 | Hospitalist Progress Note ---
<Mihcelle Gay - Last Filed: 01/11/17 12:23> Assessment and Plan - Time spent with patient Time spent with patient: Less than 30 minutes (1) Incarcerated ventral hernia Status: Resolved Assessment and plan: 46-year-old -[place] female who underwent laparotomy with resection of abdominal tumors, hysterectomy, small bowel resection, and ventral hernia repair with her last operation 01/01/[address] Galvez. She was seen by Dr. Montiel this morning and patient's white blood cell count is continuing to rise with it up to 20 today. He has switched upper antibiotics to Cipro and Unasyn and will repeat some labs in the morning. She does have a UTI from several days ago but it is sensitive to Cipro. She does not complain of dysuria or discomfort. She is not running fevers. Her chest is clear to auscultation she has some mild atelectasis in the lung bases but she is performing her incentive as instructed. She has bilateral lower extremity edema but this should improve as she increases her activity level. Her blood pressures are stable on Norvasc and metoprolol. Her magnesium is low so we will go ahead and replace this per protocol. Her blood sugars are under control. We will hope her white count goes down tomorrow in preparation for hopeful discharge. Current Visit: Yes (2) Hypertension Status: Acute Current Visit: Yes (3) UTI (urinary tract infection) due to Enterococcus Status: Acute Current Visit: Yes (4) Abdominal fluid collection Status: Acute Current Visit: Yes Hospitalist: Subjective Interval history: Patient states she feels good today. She is up ambulating on her own. She complains of abdominal soreness but no overt pain. She does have lower extremity edema but this seems to be improving. She states she does not have much of an appetite but she has been started on Ensure. She is tolerating water and juice. She is eager to go home Exam - Constitutional Vitals: Period Temp Pulse Resp BP Sys/Au Pulse Ox Last 24 Hr 97.5 F-98.4 F 79-86 18-24 136-158/82-96 94-100 Exam: 46-year-old -[place] female, no acute distress, alert and oriented Mother is in the room Chest clear CV regular rate and rhythm Abdomen appropriately tender, good bowel sounds, perc drain in place with serosang drainage. Her midline wound is clean with a small amount of fascial separation but no evisceration noted. Extremities with 2+ edema to the thighs Results - Labs CBC & BMP: 01/11/17 01:57 01/11/17 01:57 Lab Results: I have reviewed the past 24 hour labs - Diagnostic Findings Procedure: Chest x-ray: report reviewed by me (Continued but improving atelectasis) Quality Measures - VTE Contraindication to Pharmacological VTE Prophylaxis: High Risk of Bleeding Specialty Discharge - Follow Up or Referrals Follow up with: Jay Galvez MD [Physician] - 01/15/17 9:00 am <Sebastian Carrera - Last Filed: 01/11/17 13:20> Hospitalist: Subjective Interval history: Patient has persistent leukocytosis and the chest x-ray that some opacity in the right lower lung field could be an elevated hemidiaphragm with fluid in the knee for between the diaphragm on the liver. This reason I am ordering a CT scan of the chest without contrast. Change antibiotics to vancomycin and cefepime doses ordered. Exam - Constitutional Vitals: Period Temp Pulse Resp BP Sys/Au Pulse Ox Last 24 Hr 97.5 F-98.4 F 79-86 18-24 136-158/82-96 94-100 Results - Labs CBC & BMP: 01/11/17 01:57 01/11/17 01:57
[2017-01-11] MEDS ORDERED: MAGNESIUM SULF RIDER 4 GM in PREMIX 1 EACH IV PRN (12:32)
[2017-01-11] MEDS ORDERED: MAGNESIUM SULF RIDER 2 GM in PREMIX 1 EACH IV PRN (12:32)
[2017-01-11] MEDS: ENOXAPARIN 40 MG/0.4 ML SYRINGE SUBCUT SCH (13:54)
[2017-01-11] MEDS: AMPICILLIN/SULBACTAM 1,500 MG in SODIUM CHLORIDE 0.9% 100 ML IV SCH ×2 (14:00→18:26)
--- NOTE | 2017-01-11 17:48 | CT Report ---
History: Leukocytosis. Evaluate for subdiaphragmatic abscess Date: 01/11/2017 Study: CT chest without IV contrast Comparison exam: CT abdomen January 08, 2017 There is no evidence of a pneumothorax. There is some platelike atelectasis in the right lower lobe more so than the left lower lobe. There is mild bilateral pleural effusion. There is no significant subdiaphragmatic fluid on either side. There is certainly no gas density abscess under either hemidiaphragm. There is reduced perihepatic free fluid where visualized compared to the abdominal CT, though the liver is not entirely included on this exam. There is a mildly enlarged anterior cardiophrenic angle lymph node measuring 10 mm short axis diameter. There is mild bilateral axillary lymphadenopathy, to include 12 mm short axis right axillary node. There is a mildly enlarged prevascular lymph node measuring 10 mm short axis diameter. There is mild scattered thoracic spondylosis. Incidental note is made of a rounded lower density thyroid nodule or cyst measuring 8 mm inferiorly in the left lobe of the thyroid. Impression: No subdiaphragmatic abscess seen. Mild bibasilar atelectasis and pleural effusion, improved compared to the CT abdomen from 3 days ago. Mild mediastinal, axillary, and cardiophrenic angle lymphadenopathy PROCEDURE INTERPRETED AT [facility] DEPARTMENT OF RADIOLOGY Final Report Signed by: Dr. Hetal Zuñiga
[2017-01-12] MEDS: METOPROLOL TARTRATE 5 MG/5 ML VIAL IV SCH ×3 (00:29→13:31)
[2017-01-12] MEDS: AMPICILLIN/SULBACTAM 1,500 MG in SODIUM CHLORIDE 0.9% 100 ML IV SCH ×3 (00:33→13:40)
[2017-01-12 04:37] LABS: Basophils % 0.2 % (0.0-0.8); Eosinophils # 0.2 10*3/uL (0.0-0.87); Eosinophils % 0.9 % (0.00-10.9); Hematocrit 28.5 VOL% (35.7-47.0); Immature Granulocytes % 3.1 %; Immature Granulocytes Absolute 0.52 #; Lymphocytes # 1.7 10*3/uL (1.4-4.0); Lymphocytes % 10.1 % (21.3-54.2); Mean Corpuscular HGB Conc 31.6 GM/DL (32-36); Mean Corpuscular Hemoglobin 22 PG (27-34); Mean Corpuscular Volume 69.7 FL (87-102); Mean Platelet Volume 10.4 FL (9.6-12.0); Monocytes % 5.6 % (1.7-12.7); NRBC # 0.02 10*3/uL; Neutrophils # 13.6 10*3/uL (1.4-7.4); Neutrophils % 80.1 % (38.7-73.9); Platelet Count 448 T/CUMM (130-400); Red Blood Count 4.09 MC/CUMM (3.8-5.5); Red Cell Distribution Width 25.4 % (9.3-17.3)
[2017-01-12 05:14] LABS: Lymphocytes 8 % (20-55); Metamyelocytes 1 %; Segmented Neutrophils 87 % (50-85); Total Cells Counted 100
[2017-01-12 05:16] LABS: Hypochromasia 2+; Platelet Estimate Increased
[2017-01-12 05:22] LABS: Calcium 7.2 MG/DL (8.5-10.1); Magnesium 1.8 MG/DL (1.8-2.4); Osmolality,Calculated 271.7 MOS/KG (273-304); Potassium 3.8 MMOL/L (3.5-5.1)
[2017-01-12] MEDS: oxyCODONE/ACETAMINOPHEN 5-325 MG TABLET PO PRN (06:26)
[2017-01-12] MEDS: amLODIPine 10 MG TABLET PO SCH (10:05)
[2017-01-12] MEDS: METOPROLOL SUCCINATE XL 50 MG TABLET PO SCH (10:06)
[2017-01-12] MEDS: PANTOPRAZOLE 40 MG TABLET PO SCH (10:06)
[2017-01-12] MEDS: CIPROFLOXACIN INJ 400 MG in PREMIX 1 EACH IV SCH (10:11)
--- NOTE | 2017-01-12 12:07 | Hospitalist Progress Note ---
Assessment and Plan (1) Hypertension Status: Acute Assessment and plan: Control Current Visit: Yes (2) Acute renal failure Status: Acute Assessment and plan: Resolved Current Visit: Yes (3) UTI (urinary tract infection) due to Enterococcus Status: Acute Assessment and plan: Resolved Current Visit: Yes (4) Abdominal fluid collection Status: Acute Assessment and plan: Resolved post surgery. Agree with plan to discharge. Current Visit: Yes Hospitalist: Subjective Interval history: Patient has been seen interviewed and examined and chart has been reviewed. I am informed that the primary service is planning to discharge today. I concur. Chest CT from yesterday was nondiagnostic there is some small atelectasis in that area but no subphrenic abscess. Patient was also a small pleural effusion on right side. Exam - Constitutional Vitals: Period Temp Pulse Resp BP Sys/Au Pulse Ox Last 24 Hr 97.5 F-98.7 F 80-89 16-24 139-154/84-95 96-100 General appearance: normal weight - Head Head exam: Present: normocephalic, atraumatic - Eye Eye exam: Present: EOMI Pupils: Present: IRON - ENT ENT exam: Present: normal exam - Neck Neck exam: Present: normal inspection - Respiratory Respiratory exam: Present: clear to auscultation bilaterally - Cardiovascular Cardiovascular exam: Present: regular rate and rhythm - GI/Abdominal GI/Abdominal exam: Present: normal bowel sounds, soft - Extremities Exam Extremities exam: Present: normal inspection, full ROM - Neurological Exam Neurological exam: Present: alert, oriented X3, CN II-XII intact - Psychiatric Psychiatric exam: Present: normal affect, normal mood - Skin Skin exam: Present: normal color, warm, dry Results - Labs CBC & BMP: 01/12/17 03:20 01/12/17 03:20 Lab Results: I have reviewed the past 24 hour labs Quality Measures - VTE Contraindication to Pharmacological VTE Prophylaxis: High Risk of Bleeding Specialty Discharge - Follow Up or Referrals Follow up with: Jay Galvez MD [Physician] - 01/15/17 9:00 am
[2017-01-12] MEDS: ENOXAPARIN 40 MG/0.4 ML SYRINGE SUBCUT SCH (13:36)
--- NOTE | 2017-01-12 13:47 | Discharge Summary ---
Hospital Course - Hospital Course Hospital Course: This patient was admitted and taken to the operating room by Dr. Ennis and Dr. Madison for a complex abdominal surgery involving hysterectomy and removal of abdominal tumors as well as small bowel resection and ventral hernia repair. She did develop a postoperative wound infection treated with opening of the wound and antibiotics and she had cultures that grew Enterobacter and enterococcus. These were sensitive to ciprofloxacin and Flagyl. The patient was also treated with a percutaneous drain of an abdominal fluid collection that looks serous and never grew any bacteria. She was doing well and had home health set up and her white blood cell count was improving so she was discharged home with follow-up with Dr. Ennis next week for possible drain removal. Specialty Discharge - Follow Up or Referrals Follow up with: Jay Galvez MD [Physician] - 01/15/17 9:00 am Discharge Plan - Discharge Data Disposition: Disch To Home/Self Care Condition at Discharge: Stable Discharge Diet: advance to your usual diet Activity: no lifting Hygiene: may shower Weight Bearing at Discharge: weight bear as tolerated Driving: not until seen by doctor Contact your physician if you experience:: fever over 101, Difficulty voiding, Redness or swelling, Nausea/Vomiting, Shortness of breath, Bleeding, pain uncontrolled by pain medications Wound / Dressing Care Instructions: Clean and pack your abdominal wound once daily in the midline of the abdomen. Compress the accordion drain continually to keep suction on the drainage catheter. - Discharge Medications New metroNIDAZOLE TAB [Flagyl Cap/Tab] 500 mg PO TID #21 tablet oxyCODONE/ACETAMINOPHEN 5-325 [Percocet 5-325] 1 tablet PO Q4H PRN #45 tablet PRN Reason: Pain Moderate To Severe (4-10) Ciprofloxacin Tab [Cipro Tab] 500 mg PO BID #14 tablet Continue Furosemide Tab [Lasix Tab] 20 mg PO BID Metoprolol Succinate 50 mg PO DAILY Irbesartan 300 mg PO DAILY Discontinued amLODIPine [Norvasc] 10 mg PO DAILY - Follow Up or Referral Follow Up: Jay Galvez MD [Physician] - 01/15/17 9:00 am - Forms/Instructions Instructions: Abdominal Hysterectomy (DC), Exploratory Laparoscopy (DC), Ventral Hernia (DC) Exam - Constitutional Vitals: Period Temp Pulse Resp BP Sys/Au Pulse Ox Last 24 Hr 97.5 F-98.7 F 80-89 16-24 139-154/84-95 96-100 General appearance: no acute distress, over weight - Head Head exam: Present: normal inspection, normocephalic - Eye Eye exam: Present: EOMI Pupils: Present: IRON - ENT ENT exam: Present: normal exam - Neck Neck exam: Present: normal inspection - Respiratory Respiratory exam: Absent: accessory muscle use, prolonged expiratory phase - Cardiovascular Cardiovascular exam: Absent: tachycardia - GI/Abdominal GI/Abdominal exam: Present: tenderness (Appropriate tenderness of the abdominal incision.), soft, other (Pigtail catheter with clear fluid output. Midline wound has good beefy granulation tissue.) - Extremities Exam Extremities exam: Present: normal inspection, normal capillary refill - Back Exam Back exam: Present: normal inspection - Neurological Exam Neurological exam: Present: alert, oriented X3 - Psychiatric Psychiatric exam: Present: normal affect, normal mood Discharge Results Procedures and tests throughout hospitalization: Pending Orders 01/08/17 09:14 Blood Culture Stat Labs on day of discharge: Labs from last 24 hours 01/12/17 01/12/17 03:20 03:20 WBC 17.0 H RBC 4.09 Hgb 9.0 L Hct 28.5 L MCV 69.7 L MCH 22 L MCHC 31.6 L RDW 25.4 H Plt Count 448 H MPV 10.4 Neut % (Auto) 80.1 H Lymph % (Auto) 10.1 L [place] % (Auto) 5.6 Eos % (Auto) 0.9 Baso % (Auto) 0.2 Neut # (Auto) 13.6 H Lymph # (Auto) 1.7 [place] # (Auto) 1.0 H Eos # (Auto) 0.2 Baso # (Auto) 0.0 Total Counted 100 Immature Gran % 3.1 Nucleated RBC % 0.1 Immature Gran # 0.52 Segmented Neutrophils 87 H Lymphocytes 8 L Monocytes 4 Metamyelocytes 1 Nucleated RBCs # 0.02 Platelet Estimate Increased Hypochromasia 2+ Sodium 138 Potassium 3.8 Chloride 104 Carbon Dioxide 25 Anion Gap 12.8 BUN 3 L Creatinine 0.60 GFR Calculation 137 BUN/Creatinine Ratio 5.00 L Glucose 90 Calculated Osmolality 271.7 L Calcium 7.2 L Magnesium 1.8 Preliminary micro results at discharge 01/08/17 09:14 Blood Culture - Preliminary Blood No growth at 3 days 01/08/17 09:06 Blood Culture - Preliminary Blood No growth at 3 days DS: Provider Date of admission: 12/31/16 18:11 Primary care physician: . No PCP Attending physician on admission: Jay Galvez MD Consults: 12/31/16 20:34 Consult to Wound Care - [place] [CONS] Routine Reason for Wound Care: Other Consult Comment: wound vac placement 12/31/16 21:42 Consult to Physician [CONS] Routine Comment: Manage HTN Consulting Provider: Amanda Bonner Consult to Specialist Group: Hospitalist When should Consulting Provider be notified: Now Consult Notification Comment: Dr Bonner aware of consult and here to see patient at 0800 01/01/17 12/31/16 22:13 Consult to Dietitian [CONS] Routine Reason for Dietitian: Dietary Consult 01/02/17 10:08 Consult to Physician [CONS] Routine Comment: acute renal failure Consulting Provider: Omid Clemons Consulting Provider Notified: Yes Consult to Specialist Group: Nephrology When should Consulting Provider be notified: Now Person Notified: brain Date Notified: 01/03/17 Time Notified: 08:25 01/02/17 10:23 Consult to Pharmacy [CONS] Routine Reason for Pharmacy Consult: Adjust Meds Renal Funct 01/07/17 09:43 Consult to Case Mgmt/Social Srvs [CONS] Routine Reason for Case Mgmt/Social Srvs: Home Health Consult Comment: wound care - open abd wound 01/10/17 11:43 Consult to Dietitian [CONS] Routine Reason for Dietitian: Supplements and/or Snacks Dietary Consult Consult Comment: insufficient nutrition Discharging clinician: Andrei Montiel MD Expected date of discharge: 01/12/17
[2017-01-12 16:39] VITALS: BP 139/83
== END 2017-01-12 16:00 | disposition home or self-care (01) | DRG 329 ==
LOC: N.ED 16:57 → N.EDINP 18:11 → N.3E 18:37 → N.ICU 18:54 → N.3E 01-04 14:00
PROVIDERS: ADMIT Surgery; ATTEND Surgery